=== PATIENT | female | born 1960 | race Caucasian/White ===

== ENCOUNTER → 2016-06-28 | Day surgery (SDC) | payer MEDICAID ==
[~2016-06-28] VITALS: Ht 170.2 cm; Wt 71.7 kg
[~2016-06-28] MED LIST: ABILIFY2 MG PO; ALENDRONATE PO; AMITIZA24 MCG PO; AMOXICILLIN875 MG PO; ANTIBIOTIC PO; ANXIETY PO; ATIVAN1 M1 PO; B12 INJ.,1000 MCG/M IM; BACLOFEN 10MG T10 MG PO; BACLOFEN20 MG PO; BUPROPION SR100 MG PO; BUPROPION100 MG PO; CALCIUM600 M1 PO; CEFTIN 250MG T250 MG PO; CELEBREX 200MG200 MG PO; CEPHALEXIN500 MG PO; CIPRO 250MG TA250 MG PO; CIPRO 500MG TA500 MG PO; CIPROFLOXACIN500 MG PO; CRESTOR5 MG PO; Cephalexin500 MG PO; DIAZEPAM5 MG PO; DICLOFENAC SOD75 MG PO; DIFLUCAN150 MG PO; ESCITALOPRAM20 MG NG; ESTRACE1 MG OR; FAMILY PHARMAC325 MG PO; FEMHRT PO; FLEXERIL10 M1 PO; FLOMAX0.4 MG PO; FOLIC ACID 1MG T1 MG PO; GABAPENTIN 600600 MG PO; GENTAMICIN O5 ML/BOT OP; HYDROCODONE-APA1 TA1 PO; HYDROCODONE1 TABLET PO; IBU-8800 MG PO; INDOCIN25 MG PO; KEFLEX 500MG.500 MG PO; LASIX20 MG PO; LEVAQUIN 750 M750 MG PO; LEVAQUIN500 MG PO; LEVOTHROID0.1 MG PO; LEVOTHYROXIN0.075 MG PO; LEVOTHYROXIN0.125 MG PO; LODRANE 24D 121 C24 PO; LORATADINE 10MG10 M1 PO; LORATADINE10 M1 PO; LORTAB 5/500 501 TAB PO; LORTAB 500 MG-71 TAB PO; MACROBID 100MG100 MG PO; MACROBID100 M3 PO; MAGNESIUM CITRA1 BOT PO; MEDROL 4MG. DOSE4 MG PO; MELOXICAM15 MG PO; METHENAMINE; MIRALAX17 GM/PACK PO; MOBIC15 MG PO; MULTIVITAMIN1 TA1 PO; NAPROSYN 500MG500 MG PO; NAPROSYN500 M1 PO; NITROFURANTOIN100 M6 PO; OMEPRAZOLE40 MG PO; PERCOCET 5/3251 EACH PO; PHENERGAN 25MG.25 M1 PO; POTASSIUM CHLO20 ME2 PO; PREDNISONE 20MG20 MG PO; PREDNISONE20 MG PO; PREMPRO 0.625 M1 TAB PO; PREVACID 30MG C30 M1 PO; PRILOSEC20 M1 PO; SERTRALINE 100100 MG PO; SERTRALINE100 MG PO; SIMVASTATIN20 MG PO; SIMVASTATIN40 MG PO; STERAPRED DS10 MG PO; TRAMADOL 50MG T50 MG PO; TYLENOL W/CODEI1 TA2 PO; VALIUM 5MG TABLE5 MG PO; VALIUM5 MG PO; VOLTAREN GEL1% TP; WELLBUTRIN 100100 M1 OR; WELLBUTRIN 100100 M1 PO; ZOLOFT100 MG PO; [UNRECOGNIZED DRUG - OTHER] PO
[2016-06-28 09:47] VITALS: BP 144/88
[2016-06-28 10:18] VITALS: BP 144/88
[2016-06-28 10:21] VITALS: BP 144/88
--- NOTE | 2016-06-28 10:27 | Procedure Note ---
Procedure detail Date of procedure: 06/28/16 Anesthesiologist: Kyree rowland CRNA Complications: None Pre-procedure diagnosis: Bilateral sacroiliitis. Post-procedure diagnosis: Same. Indications for procedure: This patient's a pleasant 56-year-old white female the comes our pain clinic today complaining of chronic low back pain as well as bilateral hip pain. Patient describes low back pain as constant, dull, aching. She describes the bilateral hip pain as sharp, stabbing. Bilateral hip pain intensifies when standing from the sitting position. Patient has extreme point tenderness over bilateral SI joints. She rates his pain 9/10 Procedure detail: Informed consent was obtained and the risks and benefits of the procedure were explained to the patient. The patient was taken to the procedure room and noninvasive monitors were placed including a noninvasive blood pressure cuff and pulse oximeter. The patient was placed prone on the procedure table. Both hips were cleansed using Betadine as a cleansing solution. C-arm fluoroscopy was used to view the right sacroiliac joint. The skin and subcutaneous tissues were anesthetized using lidocaine 1.5% and a 25-gauge needle. After this, a 22-gauge spinal needle was inserted under fluoroscopic guidance into the inferior aspect of the right sacroiliac joint. Omnipaque dye was injected and good spread was seen throughout the joint. After this, approximately 5 mL of bupivacaine, 0.25% and Depo-Medrol, 40 mg was incrementally injected into the right sacroiliac joint. We then moved to the left sacroiliac joint. The skin and subcutaneous tissues were anesthetized using lidocaine 1.5% and a 25-gauge needle. After this, a 22- gauge spinal needle was inserted under fluoroscopic guidance into the inferior aspect of the left sacroiliac joint. Omnipaque dye was injected and good spread was seen throughout the joint. After this, approximately 5 mL of bupivacaine, 0.25% and Depo-Medrol, 40 mg was incrementally injected into the left sacroiliac joint. The patient tolerated the procedure well with no complications. The patient was observed in the Pain Clinic and then was discharged home neurologically intact. Plan and disposition: Patient was evaluated 10 minutes post procedure. Patient reports 90 percent improvement terms her bilateral hip pain. She will follow-up with us in the pain clinic for further reevaluation. at [phone]
[2016-06-28 10:29] VITALS: BP 144/89
== END ==
LOC: PM 09:15
PROC: 3E0U33Z Introduction of Anti-inflammatory into Joints, Percutaneous Approach (ICD-10-PCS; principal; 2016-06-28)
PROC: 3E0U3BZ Introduction of Anesthetic Agent into Joints, Percutaneous Approach (ICD-10-PCS; 2016-06-28)
DX: M46.1 Sacroiliitis, not elsewhere classified (principal)
CPT/HCPCS: G0260; J1030

== ENCOUNTER 2016-08-04 10:34 | Emergency (ER) | payer MEDICAID ==
[~2016-08-04] VITALS: Ht 170.2 cm; Wt 71.7 kg
[~2016-08-04 10:34] MED LIST changes: -DIFLUCAN150 MG PO; -LEVAQUIN 750 M750 MG PO; -MACROBID100 M3 PO
--- NOTE | 2016-08-04 11:00 | Emergency Room Report ---
History of Present Illness Time Seen by [id number] Presenting Problem in Triage Pt arrived:Wheelchair Presenting Problem:PT REPORTS HAVE BEEN FATIGUED, FEELING WEAK, WANTING TO SLEEP ALL THE TIME LOWER ABD PAIN FOR A COUPLE MONTHS. PT STATES SHE HAS NOT BEEN ABLE TO SEE HER PCP OVER SYMPTOMS R/T LACK OF TRANSPORTATION. 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 N Clinical Suspician of Infection? N Mental Status: 1 - Regular (Normal Baseline) Sepsis Risk:Possible Sepsis Risk Have you (or family members/close friends) recently traveled outside the [place]? N If Yes, where/when: Have you had exposure to infectious disease within the past month? N TB? Other? Specify: Source patient, RN notes reviewed, family, old records Exam Limitations no limitations Comment pt with multiple c/o with feeling of weakness and no vomiting or diarrhea with no chest pain Cardiac Chest Pain Chest pain indicative of cardiac No Timing/Duration this evening Severity moderate ALLERGIES Coded Allergies: Sulfa (Sulfonamide Antibiotics) (Mild, I-RASH 05/29/16) metoclopramide (From REGLAN) (Mild, I-RASH 05/29/16) Home Medications Reported Medications Alendronate Sodium (Fosamax) 10 MG PO DAILY Levothyroxine Sodium (Levothyroxine 0.125MG) 0.125 MG PO DAILY Gabapentin (Gabapentin 600MG) 600 MG PO Q8 PRN PAIN #90 TAB Meloxicam (Meloxicam 15MG) 15 MG PO DAILY #30 TAB Vitamin B12 (Cyanocobalamin Injection) 1,000 MCG IM UNKNOWN #1 Sertraline Hydrochloride (Sertraline 100MG) 100 MG PO BID Loratadine (Loratadine 10MG Tablet) 10 MG PO DAILY Lubiprostone (Amitiza) 24 MCG PO BID Diazepam (Valium) 5 MG PO BID OMEPRAZOLE MAGNESIUM (Prilosec 20MG) 40 MG PO DAILY History Medical History General CAD? No Angina: No [place]: No Hypertension? No Hyperlipidemia? Yes CHF? No DVT? No PE? No COPD? No Asthma? No Anemia? No GERD? No Gastric ulcers? No GI Bleed? No Hernia? No Thyroid Problems? Yes Hypothyroidism? Yes CVA? No Seizures? No Diabetes? No Renal Insuffiency? No End Stage Renal Disease? No UTI? Yes Stones? No BPH? No GB Disease: No Nephritic Syndrome? No Asplenia? No Hepatitis? No Sickle Cell Disease? No Arthritis? Yes Migraines? No Cataracts? No Glaucoma? No MRSA? No HIV? No TB? No Anxiety? Yes Depression? No Cancer? No More? 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 Respiratory denies cough, denies shortness of breath, denies wheezing Cardiovascular denies chest pain, denies syncope Gastrointestinal see HPI, abdominal pain, nausea Genitourinary denies: dysuria, frequency, hesitancy, hematuria. Musculoskeletal denies back pain, denies joint pain, denies joint swelling, denies neck pain Skin denies rash Psychiatric/Neurological denies headache, denies seizure Physical Exam Vital Signs Vital Signs Date Time Temp Pulse Resp B/P Pulse O2 O2 Flow FiO2 Ox Delivery Rate 08/04 1410 98.4 81 20 130/71 97 08/04 1321 98.5 81 20 124/78 97 08/04 1240 98.5 84 20 121/76 96 08/04 1039 98.5 98 20 1444/87 96 - WBC >12,000 or <4,000 or 10% bands? 2 or more SIRS Criteria Met? B/P:130/71 MAP:539 Creatinine >2.0? UA output<0.5ml/kg/hr for 2 hrs? Platelet count >100,000? Lactate >2.0mmol/1? INR >1.2 or PTT > than 60 sec? Evidence of Organ Dysfunction? Provider documented clinical suspician of infection? N Sepsis Criteria Count: 2 Sepsis Risk: Possible Sepsis Risk General Appearance no apparent distress Eye Exam - bilateral eye PERRL, bilateral eye EOMI Ear, Nose, Throat normal ENT inspection Neck supple Respiratory Status No: respiratory distress. Lung Sounds bilateral: lungs clear. 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 No Results/Orders Laboratory Tests 08/04/16 1050: Sodium 139, Potassium 3.8, Chloride 106, Carbon Dioxide 25, BUN 21 H, Creatinine 0.6, Estimated Creat Clear 116, Estimated GFR (MDRD) 103, Glucose 92, Calcium 7.9 L, Total Bilirubin 0.3, AST 14 L, ALT 29, Alkaline Phosphatase 63, Total Protein 7.0, Albumin 3.2 L, Globulin 3.8 H, Albumin/Globulin Ratio 0.8 L, Amylase 31, Lipase 239, WBC 3.9 L, RBC 4.89, Hgb 12.5, Hct 38.3, MCV 78.3 L , RDW 14.7, Plt Count 147, MPV 6.7 L, Gran % 62.2, Gran # 2.4, Lymphocytes % 28.3, Monocytes % 6.1, Eosinophils % 2.6, Basophils % 0.8, Lymphocytes # 1.1, Monocytes # 0.2, Eosinophils # 0.1, Basophils # 0.0, PUBS MCHC 32.8, MCH 25.6 L Orders Procedure Date/time Status LIPASE 08/04 1103 Complete CBC WITH AUTO DIFF 08/04 110 Complete CHEM 12 PROFILE 08/04 1103 Complete AMYLASE 08/04 1103 Complete Departure Departure Time of Disposition 1421 Disposition DC Home or Self Care(routine) Clinical Impression Primary Impression: Weakness Condition STABLE Patient Instructions DI for Fatigue Additional Instructions see pcp for follow up and resume meds Discharge Counseling Counseled pt/family regarding diagnosis, test results, medications/RX, follow up needs ED Critical Care Critical Care No at 1426
--- NOTE | 2016-08-04 11:00 | Emergency Room Report ---
History of Present Illness Time Seen by [id number] Presenting Problem in Triage Pt arrived:Wheelchair Presenting Problem:PT REPORTS HAVE BEEN FATIGUED, FEELING WEAK, WANTING TO SLEEP ALL THE TIME LOWER ABD PAIN FOR A COUPLE MONTHS. PT STATES SHE HAS NOT BEEN ABLE TO SEE HER PCP OVER SYMPTOMS R/T LACK OF TRANSPORTATION. 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 N Clinical Suspician of Infection? N Mental Status: 1 - Regular (Normal Baseline) Sepsis Risk:Possible Sepsis Risk Have you (or family members/close friends) recently traveled outside the [place]? N If Yes, where/when: Have you had exposure to infectious disease within the past month? N TB? Other? Specify: Source patient, RN notes reviewed, family, old records Exam Limitations no limitations Comment pt with multiple c/o with feeling of weakness and no vomiting or diarrhea with no chest pain Cardiac Chest Pain Chest pain indicative of cardiac No Timing/Duration this evening Severity moderate ALLERGIES Coded Allergies: Sulfa (Sulfonamide Antibiotics) (Mild, I-RASH 05/29/16) metoclopramide (From REGLAN) (Mild, I-RASH 05/29/16) Home Medications Reported Medications Alendronate Sodium (Fosamax) 10 MG PO DAILY Levothyroxine Sodium (Levothyroxine 0.125MG) 0.125 MG PO DAILY Gabapentin (Gabapentin 600MG) 600 MG PO Q8 PRN PAIN #90 TAB Meloxicam (Meloxicam 15MG) 15 MG PO DAILY #30 TAB Vitamin B12 (Cyanocobalamin Injection) 1,000 MCG IM UNKNOWN #1 Sertraline Hydrochloride (Sertraline 100MG) 100 MG PO BID Loratadine (Loratadine 10MG Tablet) 10 MG PO DAILY Lubiprostone (Amitiza) 24 MCG PO BID Diazepam (Valium) 5 MG PO BID OMEPRAZOLE MAGNESIUM (Prilosec 20MG) 40 MG PO DAILY History Medical History General CAD? No Angina: No [place]: No Hypertension? No Hyperlipidemia? Yes CHF? No DVT? No PE? No COPD? No Asthma? No Anemia? No GERD? No Gastric ulcers? No GI Bleed? No Hernia? No Thyroid Problems? Yes Hypothyroidism? Yes CVA? No Seizures? No Diabetes? No Renal Insuffiency? No End Stage Renal Disease? No UTI? Yes Stones? No BPH? No GB Disease: No Nephritic Syndrome? No Asplenia? No Hepatitis? No Sickle Cell Disease? No Arthritis? Yes Migraines? No Cataracts? No Glaucoma? No MRSA? No HIV? No TB? No Anxiety? Yes Depression? No Cancer? No More? 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 Respiratory denies cough, denies shortness of breath, denies wheezing Cardiovascular denies chest pain, denies syncope Gastrointestinal see HPI, abdominal pain, nausea Genitourinary denies: dysuria, frequency, hesitancy, hematuria. Musculoskeletal denies back pain, denies joint pain, denies joint swelling, denies neck pain Skin denies rash Psychiatric/Neurological denies headache, denies seizure Physical Exam Vital Signs Vital Signs Date Time Temp Pulse Resp B/P Pulse O2 O2 Flow FiO2 Ox Delivery Rate 08/04 1410 98.4 81 20 130/71 97 08/04 1321 98.5 81 20 124/78 97 08/04 1240 98.5 84 20 121/76 96 08/04 1039 98.5 98 20 1444/87 96 - WBC >12,000 or <4,000 or 10% bands? 2 or more SIRS Criteria Met? B/P:130/71 MAP:539 Creatinine >2.0? UA output<0.5ml/kg/hr for 2 hrs? Platelet count >100,000? Lactate >2.0mmol/1? INR >1.2 or PTT > than 60 sec? Evidence of Organ Dysfunction? Provider documented clinical suspician of infection? N Sepsis Criteria Count: 2 Sepsis Risk: Possible Sepsis Risk General Appearance no apparent distress Eye Exam - bilateral eye PERRL, bilateral eye EOMI Ear, Nose, Throat normal ENT inspection Neck supple Respiratory Status No: respiratory distress. Lung Sounds bilateral: lungs clear. 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 No Results/Orders Laboratory Tests 08/04/16 1050: Sodium 139, Potassium 3.8, Chloride 106, Carbon Dioxide 25, BUN 21 H, Creatinine 0.6, Estimated Creat Clear 116, Estimated GFR (MDRD) 103, Glucose 92, Calcium 7.9 L, Total Bilirubin 0.3, AST 14 L, ALT 29, Alkaline Phosphatase 63, Total Protein 7.0, Albumin 3.2 L, Globulin 3.8 H, Albumin/Globulin Ratio 0.8 L, Amylase 31, Lipase 239, WBC 3.9 L, RBC 4.89, Hgb 12.5, Hct 38.3, MCV 78.3 L , RDW 14.7, Plt Count 147, MPV 6.7 L, Gran % 62.2, Gran # 2.4, Lymphocytes % 28.3, Monocytes % 6.1, Eosinophils % 2.6, Basophils % 0.8, Lymphocytes # 1.1, Monocytes # 0.2, Eosinophils # 0.1, Basophils # 0.0, PUBS MCHC 32.8, MCH 25.6 L Orders Procedure Date/time Status LIPASE 08/04 1103 Complete CBC WITH AUTO DIFF 08/04 110 Complete CHEM 12 PROFILE 08/04 1103 Complete AMYLASE 08/04 1103 Complete Departure Departure Time of Disposition 1421 Disposition DC Home or Self Care(routine) Clinical Impression Primary Impression: Weakness Condition STABLE Patient Instructions DI for Fatigue Additional Instructions see pcp for follow up and resume meds Discharge Counseling Counseled pt/family regarding diagnosis, test results, medications/RX, follow up needs ED Critical Care Critical Care No at 1429
[2016-08-04 11:07] LABS: HEMOGLOBIN 12.5 g/dL (12.2-16.2); LYMPH # 1.1 K/mm3 (0.7-4.5); LYMPH % 28.3 % (10-50.0)
[2016-08-04 14:28] VITALS: BP 135/83
[2016-08-29] MEDS ORDERED: LEVAQUIN 750 M750 MG PO (15:30)
== END 2016-08-04 14:28 | disposition home or self-care (01) ==
LOC: ER 10:34
PROVIDERS: Emergency Medicine
DX: R53.1 Weakness (principal); R10.30 Lower abdominal pain, unspecified; G80.9 Cerebral palsy, unspecified

== ENCOUNTER 2016-09-28 03:17 | Emergency (ER) | payer MEDICAID ==
[~2016-09-28] VITALS: Ht 170.2 cm; Wt 71.2 kg
[~2016-09-28 03:17] MED LIST changes: +LEVAQUIN 750 M750 MG PO
--- NOTE | 2016-09-28 03:38 | Emergency Room Report ---
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 N Clinical Suspician of Infection? N Mental Status: 1 - Regular (Normal Baseline) Sepsis Risk:Possible Sepsis Risk Have you (or family members/close friends) recently traveled outside the [place]? N If Yes, where/when: Have you had exposure to infectious disease within the past month? N TB? Other? Specify: Comment The patient complains of needing a bladder catheterization and also vaginal irritation and pain. She has a history of cerebral palsy. She gets in and out catheterized every 6 hours, performed by her . The last time she was catheter was 5 PM yesterday evening. She says that her was running late for work and did not get to do it before he went to work at 10:30 PM. She tried to catheterize herself tonzita was not able to do so and therefore called 911 to be brought to the emergency room. She also complains of vaginal irritation, yeast infection from recent antibiotics that she took for a urinary tract infection and bronchitis a week ago. She believes this was Levaquin. She took a diagnosis of Diflucan patrica. ALLERGIES Coded Allergies: Sulfa (Sulfonamide Antibiotics) (Mild, I-RASH 08/29/16) metoclopramide (From REGLAN) (Mild, I-RASH 08/29/16) Home Medications Reported Medications Alendronate Sodium (Fosamax) 10 MG PO DAILY Levothyroxine Sodium (Levothyroxine 0.125MG) 0.125 MG PO DAILY Gabapentin (Gabapentin 600MG) 600 MG PO Q8 PRN PAIN #90 TAB Vitamin B12 (Cyanocobalamin Injection) 1,000 MCG IM UNKNOWN #1 Diazepam (Valium) 5 MG PO BID OMEPRAZOLE MAGNESIUM (Prilosec 20MG) 40 MG PO DAILY History Medical History General CAD? No Angina: No [place]: No Hypertension? No Hyperlipidemia? Yes CHF? No DVT? No PE? No COPD? No Asthma? No Anemia? No GERD? No Gastric ulcers? No GI Bleed? No Hernia? No Thyroid Problems? Yes Hypothyroidism? Yes CVA? No Seizures? No Diabetes? No Renal Insuffiency? No End Stage Renal Disease? No UTI? Yes Stones? No BPH? No GB Disease: No Nephritic Syndrome? No Asplenia? No Hepatitis? No Sickle Cell Disease? No Arthritis? Yes Migraines? No Cataracts? No Glaucoma? No MRSA? No HIV? No TB? No Anxiety? Yes Depression? No Cancer? No More? 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 Physical Exam Vital Signs Vital Signs Date Time Temp Pulse Resp B/P Pulse O2 O2 Flow FiO2 Ox Delivery Rate 09/28 0359 98.6 95 18 123/75 98 09/28 0326 98.6 92 20 153/80 98 General Appearance normal appearance, WD/WN Eye Exam - bilateral eye normal exam, bilateral eye PERRL, bilateral eye EOMI Ear, Nose, Throat hearing grossly normal, normal ENT inspection Neck normal inspection, non-tender, supple, full range of motion Respiratory Status Yes: trachea midline, chest symmetrical, non tender chest. No: respiratory distress. Lung Sounds bilateral: normal breath sounds, lungs clear. Cardiovascular normal exam, regular rate/rhythm, no peripheral edema, no gallop, no JVD, no murmur, no rub, normal peripheral pulses Peripheral Pulses Pulses normal Yes Gastrointestinal normal bowel sounds, normal exam, non tender, soft, no organomegaly Back no CVA tenderness Comment Nurse reports that there was some erythema of the vulvar area without any lesions when she inserted the catheter. Neurologic alert, oriented x 3 Mental status normal mood/affect Skin intact, normal color, warm/dry Medical Decision Making LABS/Meds/Orders Pt receiving controlled substance in ED? No Results/Orders Laboratory Tests 09/28/16 0330: Urine Color YELLOW, Urine Appearance CLEAR, Urine pH 6.0, Ur Specific [place] 1.020, Urine Protein NEGATIVE, Urine Ketones NEGATIVE, Urine Blood NEGATIVE, Urine Nitrate POSITIVE H, Urine Bilirubin NEGATIVE, Urine Urobilinogen 1.0, Ur Leukocyte Esterase NEGATIVE, Urine WBC 3-5, Ur Squamous Epith Cells OCC, Urine Bacteria 4+, Urine Glucose NEGATIVE Current Medication Orders Sig/Georgette Start time Last Medication Dose Route Stop Time Status Admin Nitrofurantoin 100 MG ONCE ONE 09/29 399 DC PO 09/28 400 Orders Procedure Date/time Status URINARY CATHETER INSERT 09/28 338 Active URINALYSIS/COMPLETE 09/28 334 Complete CULTURE, URINE 09/28 329 Active Departure Departure Disposition DC Home or Self Care(routine) Clinical Impression Primary Impression: Acute urinary retention Secondary Impressions: UTI (urinary tract infection) Qualifiers: Urinary tract infection type: acute cystitis Hematuria presence: without hematuria Qualified Code: N30.00 - Acute cystitis without hematuria Yeast vaginitis Condition STABLE Patient Instructions DI for Urinary Tract Infection (UTI), DI for Vaginal Yeast Infection Additional Instructions Additional instructions for URINARY TRACT INFECTION: See your physician as soon as possible for further evaluation. Return immediately if you have an uncontrollable fever greater than 102 degrees, severe back or abdominal pain, or repetetive vomiting. Prescriptions Current Visit Scripts NITROFURANTOIN MONOHYD/M-CRYST (Macrobid 100 MG Capsule) 100 MG PO BID #14 CAP Fluconazole (Diflucan 150MG) 150 MG PO DAILY #2 TAB ED Critical Care Critical Care No at 0401
[2016-09-28 03:40] LABS: URINE BILIRUBIN - DIPSTICK NEGATIVE (NEG); URINE BLOOD NEGATIVE (NEG)
[2016-09-28 03:50] LABS: URINE SQUAMOUS CELLS OCC #/hpf (0-5)
[2016-09-28] MEDS ORDERED: MACROBID100 M3 PO (04:00)
[2016-09-28] MEDS ORDERED: DIFLUCAN150 MG PO (04:00)
[2016-09-28 04:08] VITALS: BP 123/75
== END 2016-09-28 04:14 | disposition home or self-care (01) ==
LOC: ER 03:17
PROVIDERS: Emergency Medicine
DX: Z46.6 Encounter for fitting and adjustment of urinary device (principal); N30.00 Acute cystitis without hematuria

== ENCOUNTER → 2016-10-18 | Outpatient (CLI) | payer MEDICAID ==
[~2016-10-18] MED LIST changes: +DIFLUCAN150 MG PO; +LINZESS290 MCG PO; +MACROBID100 M3 PO; +VENLAFAXINE HCL75 M1 PO
[2016-10-18 11:53] LABS: URINE BILIRUBIN - DIPSTICK NEGATIVE (NEG); URINE BLOOD NEGATIVE (NEG)
[2016-10-18 12:02] LABS: URINE SQUAMOUS CELLS OCC #/hpf (0-5)
== END ==
LOC: LAB 09:06
PROVIDERS: Internal Medicine Adolescent Medicine
DX: N39.0 Urinary tract infection, site not specified (principal)

== ENCOUNTER → 2016-10-24 | Outpatient (CLI) | payer MEDICAID ==
--- NOTE | 2016-10-24 15:01 | RADIOLOGY REPORT PS360 ---
HAND-LT-3 VIEWS HISTORY: Hand pain following injury LT WRIST PAIN ORDERING PHYSICIAN: Paresh Romero MD PATIENT AGE: 56 years COMPARISON: None FINDINGS: No fracture or dislocation. No lytic or blastic change. There is normal mineralization. The joint spaces are well-preserved. No significant degenerative/arthritic changes. No erosive changes evident. IMPRESSION: Negative left hand, no acute finding
--- NOTE | 2016-10-24 15:02 | RADIOLOGY REPORT PS360 ---
WRIST-3 VIEWS-LT HISTORY: LT WRIST PAINY ORDERING PHYSICIAN: Paresh Romero MD PATIENT AGE: 56 years COMPARISON: None FINDINGS: No fracture or dislocation. No lytic or blastic change. There is normal mineralization. The joint spaces are well-preserved. No significant degenerative/arthritic changes. No erosive changes evident. IMPRESSION: Negative left wrist, no acute finding
== END ==
LOC: RAD 09:07
DX: M25.532 Pain in left wrist (principal)

== ENCOUNTER 2017-03-08 22:00 | Emergency (ER) | payer MEDICAID ==
[~2017-03-08] VITALS: Ht 170.2 cm; Wt 65.8 kg
[2017-03-08] MEDS ORDERED: ESTRACE0.1 MG/GM VG (22:25)
[2017-03-08] MEDS ORDERED: BETHANECHOL CHL25 MG PO (22:27)
[2017-03-08] MEDS ORDERED: LOTRISONE 0.05%1 CRE TP (22:28)
[2017-03-08] MEDS ORDERED: FLONASE 50 MCG16 GM (22:30)
[2017-03-08] MEDS ORDERED: CETIRIZINE HCL10 MG PO (22:30)
[2017-03-08] MEDS ORDERED: VENTOLIN H0.09 MG/AC IH (22:31)
--- NOTE | 2017-03-08 22:38 | Emergency Room Report ---
History of Present Illness Time Seen by 220 Presenting Problem in Triage Pt arrived:Walked Presenting Problem:feels like she may have a uti, she self caths secondary to CP. fatigue, malaise and bilateral flank pain. 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 N Clinical Suspician of Infection? N Mental Status: 1 - Regular (Normal Baseline) Sepsis Risk:Low Sepsis Risk Have you (or family members/close friends) recently traveled outside the [place]? N If Yes, where/when: Have you had exposure to infectious disease within the past month? N TB? Other? Specify: Source patient, RN notes reviewed, old records Exam Limitations no limitations Comment flank pain with chills and no vomiting which started tonight Cardiac Chest Pain Chest pain indicative of cardiac No Timing/Duration this evening Severity moderate ALLERGIES Coded Allergies: Sulfa (Sulfonamide Antibiotics) (Mild, I-RASH 08/29/16) metoclopramide (From REGLAN) (Mild, I-RASH 08/29/16) Home Medications Reported Medications Alendronate Sodium (Fosamax) 10 MG PO DAILY Levothyroxine Sodium (Levothyroxine 0.125MG) 0.125 MG PO DAILY Gabapentin (Gabapentin 600MG) 600 MG PO Q8 PRN PAIN #90 TAB Vitamin B12 (Cyanocobalamin Injection) 1,000 MCG IM UNKNOWN #1 Estradiol (Estrace) 0.1 MG VG TID Bethanechol Chloride 50 MG PO TID CLOTRIMAZOLE W/ BETAMETHASONE (Lotrisone Cream) 1 CRE TP PRN PRN IRRITATION CETIRIZINE HCL (Cetirizine 10MG) 10 MG PO DAILY Fluticasone Propionate (Flonase 50 Mcg Nasal [place]) 1 SPRAY NA BID ALBUTEROL (Ventolin Hfa) 1 PUFF IH Q6H6 Diazepam (Valium) 5 MG PO BID OMEPRAZOLE MAGNESIUM (Prilosec 20MG) 40 MG PO DAILY Linaclotide (Linzess 290MCG) 290 MCG PO DAILY Venlafaxine Hydrochloride (Venlafaxine XR) 75 MG PO QHS CEFUROXIME AXETIL (CEFTIN 250MG TAB) 500 MG PO BID History Medical History General CAD? No Angina: No CT: No Hypertension? No Hyperlipidemia? Yes CHF? No DVT? No PE? No COPD? No Asthma? No Anemia? No GERD? No Gastric ulcers? No GI Bleed? No Hernia? No Thyroid Problems? Yes Hypothyroidism? Yes CVA? No Seizures? No Diabetes? No Renal Insuffiency? No End Stage Renal Disease? No UTI? Yes Stones? No BPH? No GB Disease: No Nephritic Syndrome? No Asplenia? No Hepatitis? No Sickle Cell Disease? No Arthritis? Yes Migraines? No Cataracts? No Glaucoma? No MRSA? No HIV? No TB? No Anxiety? Yes Depression? No Cancer? No More? Yes Additional hx: CEREBRAL PALSY OSTEOARTHRITIS SELF CATHERIZATION PRN Immunization Hx Ped.Immunizations UTD No DT/Tetanus 12/04/11 Flu 3043-1499 Flu Season Pneumonia NEVER Surgical Hx Previous Surgery?Y Tubal Ligation Appendix INTERSTIM THERAPY THYROIDECTOMY BACK SURGERY 10/30 INTAKE RN Hx LMP menopause Family History Family Hx Diabetes Yes CAD Yes Hypertension No Hyperlipidemia No Cancer No TB No Social History Smoking Hx Smoker: Never Smoker Tobacco: No Alcohol Alcohol: No Drugs none Review of Systems All Other Systems Reviewed and Negative Constitutional see HPI, chills, denies fever Eyes denies drainage ENT denies: ear discharge, epistaxis, throat pain. Respiratory denies cough, denies shortness of breath, denies wheezing Cardiovascular denies chest pain, denies palpitations, denies syncope Gastrointestinal denies abdominal pain, denies diarrhea, denies vomiting Genitourinary denies: dysuria, frequency, hesitancy, hematuria. Musculoskeletal denies back pain, denies joint pain, denies joint swelling, denies neck pain Skin denies rash Psychiatric/Neurological denies headache, denies seizure Physical Exam Vital Signs Vital Signs Date Time Temp Pulse Resp B/P Pulse O2 O2 Flow FiO2 Ox Delivery Rate 03/09 0021 98.0 92 18 132/88 93 03/08 2327 92 18 137/81 93 03/08 2212 98.0 98 14 137/74 98 - WBC >12,000 or <4,000 or 10% bands? 2 or more SIRS Criteria Met? B/P:137/81 MAP:95 Creatinine >2.0? UA output<0.5ml/kg/hr for 2 hrs? Platelet count >100,000? Lactate >2.0mmol/1? INR >1.2 or PTT > than 60 sec? Evidence of Organ Dysfunction? Provider documented clinical suspician of infection? N Sepsis Criteria Count: 1 Sepsis Risk: Low Sepsis Risk General Appearance no apparent distress Eye Exam - bilateral eye PERRL, bilateral eye EOMI Ear, Nose, Throat normal ENT inspection Neck supple Respiratory Status No: respiratory distress. 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 No Results/Orders Laboratory Tests 03/08/17 2300: Urine Color YELLOW, Urine Appearance CLEAR, Urine pH 6.0, Ur Specific [place] >= 1.030, Urine Protein NEGATIVE, Urine Ketones NEGATIVE, Urine Blood NEGATIVE, Urine Nitrate POSITIVE H, Urine Bilirubin NEGATIVE, Urine Urobilinogen 0.2, Ur Leukocyte Esterase TRACE H, Urine WBC 10-20, Ur Squamous Epith Cells 5-10, Urine Bacteria 2+, Urine Glucose NEGATIVE 03/08/17 2250: Sodium 138, Potassium 3.3 L, Chloride 106, Carbon Dioxide 26, BUN 19 H, Creatinine 0.7, Estimated Creat Clear 91, Estimated GFR (MDRD) 86, Glucose 112 H, Calcium 9.0, Total Bilirubin 0.4, AST 10 L, ALT 21, Alkaline Phosphatase 87, Total Protein 7.6, Albumin 3.6, Globulin 4.0 H, Albumin/Globulin Ratio 0.9 L, Amylase 39, Lipase 306, WBC 7.5, RBC 5.40, Hgb 14.1, Hct 43.6, MCV 80.7 L, RDW 13.9, Plt Count 185, MPV 8.0, Gran % 64.5, Gran # 4.8, Lymphocytes % 26.8, Monocytes % 5.8, Eosinophils % 2.3, Basophils % 0.6, Lymphocytes # 2.0, Monocytes # 0.4, Eosinophils # 0.2, Basophils # 0.1, PUBS MCHC 32.4, MCH 26.2 L Current Medication Orders Sig/Georgette Start time Last Medication Dose Route Stop Time Status Admin Sodium Chloride 100 ML .STK-MED ONE 03/09 0000 DC IV Ceftriaxone Sodium 0 .STK-MED ONE 03/08 2359 DC IV Ceftriaxone Sodium 1 GM ONCE ONE 03/08 2345 DC 03/09 Sodium Chloride 50 ML IV 03/09 0014 0003 Sodium Chloride 10 ML PRN PRN 03/08 2245 AC IV 03/09 2238 Orders Procedure Date/time Status DIET-NOTHING BY MOUTH 03/[address] ABD & PELVIS W/O CONTRAST 03/08 2305 Active CULTURE, URINE 03/[address] SCAN REQ 03/08 2239 Active IV SALINE LOCK 03/08 2239 Active URINALYSIS/COMPLETE 03/08 2239 Complete LIPASE 03/08 2239 Complete COMPLETE METABOLIC PANEL 03/08 2239 Complete CBC WITH AUTO DIFF 03/08 2239 Complete AMYLASE 03/08 2239 Complete XRAY/CT/US XRAY/CT/US CT abdomen, pelvis CT interpretation by discussed w/radiologist Time results known: 0033 CT Results abnormal (see chart) Departure Departure Time of Disposition 27 Disposition DC Home or Self Care(routine) Clinical Impression Primary Impression: UTI (urinary tract infection) Qualifiers: Urinary tract infection type: acute cystitis Hematuria presence: without hematuria Qualified Code: N30.00 - Acute cystitis without hematuria Secondary Impressions: Spinal stenosis Qualifiers: Spinal region: thoracic Qualified Code: M48.04 - Spinal stenosis, thoracic region Condition STABLE Referrals Paresh Romero MD (Family) Patient Instructions DI for Urinary Tract Infection (UTI) Additional Instructions fluids and see pcp for follow up and urine culture results Discharge Counseling Counseled pt/family regarding diagnosis, test results, medications/RX, follow up needs Prescriptions Current Visit Scripts Ciprofloxacin HCl (Cipro 500MG TAB) 500 MG PO BID #14 TAB ED Critical Care Critical Care No at 0036
[2017-03-08 23:08] LABS: URINE BILIRUBIN - DIPSTICK NEGATIVE (NEG); URINE BLOOD NEGATIVE (NEG)
[2017-03-08 23:11] LABS: LYMPH % 26.8 % (10-50.0)
[2017-03-08 23:13] LABS: HEMOGLOBIN 14.1 g/dL (12.2-16.2)
[2017-03-09] MEDS ORDERED: CIPRO 500MG TA500 MG PO (00:34)
[2017-03-09 00:35] VITALS: BP 132/88
--- NOTE | 2017-03-09 07:02 | RADIOLOGY REPORT PS360 ---
CT ABD PELVIS W/O CONTRAST CLINICAL INDICATION: ABD PAIN ORDERING PHYSICIAN: Laurie Guerin MD PATIENT AGE: 56 years COMPARISON: 11/04/2016 TECHNIQUE: Axial images obtained with sagittal and coronal reformats. PROCEDURE: Oral Contrast: None IV Contrast: None . FINDINGS: Lung bases are clear. Small hiatal hernia. Gallbladder is contracted. No radiopaque stones. The liver, spleen, adrenal glands, pancreas, and kidneys have an unremarkable unenhanced appearance with no acute finding of the solid organs. Prior appendectomy. No evidence of intestinal obstruction, free air, or diverticulitis. No abnormal fluid collections or focal inflammatory change evident. There is wedge compression changes of T12 or chronic with prior vertebroplasty at that region. There is retropulsion of the posterior inferior aspect of T12 at 7 mm spinal stenosis. Chronic wedge compression changes involve L2 with 7 mm retropulsion of the posterior-superior aspect. IMPRESSION: 1. No change with no acute findings. 2. Chronic wedge compression changes of T12 and L2 with spinal stenosis
== END 2017-03-09 00:35 | disposition home or self-care (01) ==
LOC: ER 22:00
PROVIDERS: Emergency Medicine
DX: N30.00 Acute cystitis without hematuria (principal); M48.04 Spinal stenosis, thoracic region; Z88.2 Allergy status to sulfonamides; Z79.899 Other long term (current) drug therapy; E03.9 Hypothyroidism, unspecified; F41.9 Anxiety disorder, unspecified; G80.9 Cerebral palsy, unspecified

== ENCOUNTER → 2017-03-10 | Outpatient (CLI) | payer MEDICAID ==
[~2017-03-10] MED LIST changes: +BETHANECHOL CHL25 MG PO; +CETIRIZINE HCL10 MG PO; +ESTRACE0.1 MG/GM VG; +FLONASE 50 MCG16 GM; +LOTRISONE 0.05%1 CRE TP; +VENTOLIN H0.09 MG/AC IH
--- NOTE | 2017-03-10 20:11 | RADIOLOGY REPORT PS360 ---
ANKLE-LT-3 VIEWS HISTORY: LT ANKLE PAIN, OLD INJURY Patient Age: 56 years: Female Ordering Physician: Paresh Romero MD TECHNIQUE: 3 views left ankle COMPARISON :3 views left ankle 12/14/2015 . FINDINGS There is old healed basically nondisplaced fractures evident at the distal fibula and tibial shaft , with subtle residual changes from such evident. These areas Are unchanged since 12/14/2015 . There is perhaps slight eversion tilt of the talus on the nonweightbearing AP view, but the ankle mortise appears maintained and intact otherwise with no widening joint space medial or lateral.... The contour of the talar dome appears intact.. If pain persists or progresses consider podiatry consult Small fragment tip of the lateral malleolus may reflect old injury an trauma as may be slight sharpening the medial malleolus . These features suggest minor degenerative changes. Small plantar calcaneal spur 6 mm length noted. . Also note moderate degenerative changes at the the first tarsal/metatarsal joint. Developing hypertrophic and sclerotic changes here. IMPRESSION: Healed fractures of the distal tibia and fibular shaft. There appears to be slightly version tilt of the talus on the AP view but this may be exaggerated by positioning & projection. Degenerative changes ankle/foot, most pronounced at the first tarsal metatarsal joint
== END ==
LOC: RAD 17:14
DX: M25.572 Pain in left ankle and joints of left foot (principal)

== ENCOUNTER 2017-03-24 22:20 | Emergency (ER) | payer MEDICAID ==
[~2017-03-24] VITALS: Ht 170.2 cm; Wt 69.9 kg
--- NOTE | 2017-03-24 22:35 | Emergency Room Report ---
History of Present Illness Time Seen by [id number] Presenting Problem in Triage Pt arrived:Wheelchair Presenting Problem:PT STATE SHE IS HAVING PAIN IN LEFT ANKLE, WHICH RADIATES UP THE ENTIRE LEFT LEG. STATES THE PAIN STARTED AROUND 4:30 THIS EVENING, HAS H/O CEREBRA PALSY. 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 N Clinical Suspician of Infection? N Mental Status: 1 - Regular (Normal Baseline) Sepsis Risk:Low Sepsis Risk Have you (or family members/close friends) recently traveled outside the [place]? N If Yes, where/when: Have you had exposure to infectious disease within the past month? N TB? Other? Specify: Source patient, RN notes reviewed, family, old records Exam Limitations no limitations Comment pt with atraumatic pain to lt hip and thigh with hx of l/s disc disease and is followed by pain center - no cauda equina sx - no fever or b/b sx Cardiac Chest Pain Chest pain indicative of cardiac No Timing/Duration this evening Severity moderate ALLERGIES Coded Allergies: Sulfa (Sulfonamide Antibiotics) (Mild, I-RASH 08/29/16) metoclopramide (From REGLAN) (Mild, I-RASH 08/29/16) Home Medications Reported Medications Alendronate Sodium (Fosamax) 10 MG PO DAILY Levothyroxine Sodium (Levothyroxine 0.125MG) 0.125 MG PO DAILY Gabapentin (Gabapentin 600MG) 600 MG PO Q8 PRN PAIN #90 TAB Vitamin B12 (Cyanocobalamin Injection) 1,000 MCG IM UNKNOWN #1 Estradiol (Estrace) 0.1 MG VG TID Bethanechol Chloride 50 MG PO TID CLOTRIMAZOLE W/ BETAMETHASONE (Lotrisone Cream) 1 CRE TP PRN PRN IRRITATION CETIRIZINE HCL (Cetirizine 10MG) 10 MG PO DAILY Fluticasone Propionate (Flonase 50 Mcg Nasal [place]) 1 SPRAY NA BID ALBUTEROL (Ventolin Hfa) 1 PUFF IH Q6H6 Diazepam (Valium) 5 MG PO BID OMEPRAZOLE MAGNESIUM (Prilosec 20MG) 40 MG PO DAILY Linaclotide (Linzess 290MCG) 290 MCG PO DAILY Venlafaxine Hydrochloride (Venlafaxine XR) 75 MG PO QHS History Medical History General CAD? No Angina: No [place]: No Hypertension? No Hyperlipidemia? Yes CHF? No DVT? No PE? No COPD? No Asthma? No Anemia? No GERD? No Gastric ulcers? No GI Bleed? No Hernia? No Thyroid Problems? Yes Hypothyroidism? Yes CVA? No Seizures? No Diabetes? No Renal Insuffiency? No End Stage Renal Disease? No UTI? Yes Stones? No BPH? No GB Disease: No Nephritic Syndrome? No Asplenia? No Hepatitis? No Sickle Cell Disease? No Arthritis? Yes Migraines? No Cataracts? No Glaucoma? No MRSA? No HIV? No TB? No Anxiety? Yes Depression? No Cancer? No More? Yes Additional hx: CEREBRAL PALSY OSTEOARTHRITIS SELF CATHERIZATION PRN Immunization Hx DT/Tetanus 12/04/11 Flu 7187-1015 Flu Season Pneumonia NEVER Surgical Hx Previous Surgery?Y Tubal Ligation Appendix INTERSTIM THERAPY THYROIDECTOMY BACK SURGERY 10/30 MUSIC ADAPTER Hx LMP N/A Family History Family Hx Diabetes Yes CAD Yes Hypertension No Hyperlipidemia No Cancer No TB No Social History Smoking Hx Smoker: Never Smoker Tobacco: No Type Cigarettes Alcohol Alcohol: No Drugs none Review of Systems All Other Systems Reviewed and Negative Constitutional denies fever Eyes denies drainage ENT denies: ear pain, epistaxis, throat pain. Respiratory denies cough, denies shortness of breath, denies wheezing Cardiovascular denies chest pain, denies syncope Gastrointestinal denies abdominal pain, denies diarrhea, denies vomiting Genitourinary denies: dysuria, frequency, hesitancy, hematuria. Musculoskeletal see HPI, back pain, denies joint pain, denies joint swelling, denies neck pain Skin denies rash Psychiatric/Neurological denies headache, denies seizure Physical Exam Vital Signs Vital Signs Date Time Temp Pulse Resp B/P Pulse O2 O2 Flow FiO2 Ox Delivery Rate 03/24 2225 98.3 113 17 133/71 97 - WBC >12,000 or <4,000 or 10% bands? 2 or more SIRS Criteria Met? B/P:133/71 MAP:91 Creatinine >2.0? UA output<0.5ml/kg/hr for 2 hrs? Platelet count >100,000? Lactate >2.0mmol/1? INR >1.2 or PTT > than 60 sec? Evidence of Organ Dysfunction? Provider documented clinical suspician of infection? N Sepsis Criteria Count: 1 Sepsis Risk: Low Sepsis Risk General Appearance no apparent distress Eye Exam - bilateral eye PERRL, bilateral eye EOMI Ear, Nose, Throat normal ENT inspection Neck non-tender Respiratory Status No: respiratory distress. 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 No Results/Orders Orders Procedure Date/time Status LUMBAR SPINE 5 VIEWS 03/24 2241 Active HIP LT 2-3V W/PELVIS IF PERFOR 03/24 2241 Active XRAY/CT/US XRAY/CT/US XRAY hip, pelvis, L-spine XR interpretation by reviewed by me Xray Results no fracture seen, abnormal Departure Departure Time of Disposition 2325 Disposition DC Home or Self Care(routine) Clinical Impression Primary Impression: Lumbar back pain with radiculopathy affecting left lower extremity Secondary Impressions: Hip pain, left Condition STABLE Referrals Paresh Romero MD (Family) Patient Instructions DI for Lumbar Radiculopathy Additional Instructions use meds and see pcp for follow up and notify pain center Discharge Counseling Counseled pt/family regarding diagnosis, test results, medications/RX, follow up needs Prescriptions Current Visit Scripts Prednisone (Prednisone 20MG) 20 MG PO BID #6 TAB ED Critical Care Critical Care No at 2338
--- NOTE | 2017-03-24 22:35 | Emergency Room Report ---
History of Present Illness Time Seen by [id number] Presenting Problem in Triage Pt arrived:Wheelchair Presenting Problem:PT STATE SHE IS HAVING PAIN IN LEFT ANKLE, WHICH RADIATES UP THE ENTIRE LEFT LEG. STATES THE PAIN STARTED AROUND 4:30 THIS EVENING, HAS H/O CEREBRA PALSY. 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 N Clinical Suspician of Infection? N Mental Status: 1 - Regular (Normal Baseline) Sepsis Risk:Low Sepsis Risk Have you (or family members/close friends) recently traveled outside the [place]? N If Yes, where/when: Have you had exposure to infectious disease within the past month? N TB? Other? Specify: Source patient, RN notes reviewed, family, old records Exam Limitations no limitations Comment pt with atraumatic pain to lt hip and thigh with hx of l/s disc disease and is followed by pain center - no cauda equina sx - no fever or b/b sx Cardiac Chest Pain Chest pain indicative of cardiac No Timing/Duration this evening Severity moderate ALLERGIES Coded Allergies: Sulfa (Sulfonamide Antibiotics) (Mild, I-RASH 08/29/16) metoclopramide (From REGLAN) (Mild, I-RASH 08/29/16) Home Medications Reported Medications Alendronate Sodium (Fosamax) 10 MG PO DAILY Levothyroxine Sodium (Levothyroxine 0.125MG) 0.125 MG PO DAILY Gabapentin (Gabapentin 600MG) 600 MG PO Q8 PRN PAIN #90 TAB Vitamin B12 (Cyanocobalamin Injection) 1,000 MCG IM UNKNOWN #1 Estradiol (Estrace) 0.1 MG VG TID Bethanechol Chloride 50 MG PO TID CLOTRIMAZOLE W/ BETAMETHASONE (Lotrisone Cream) 1 CRE TP PRN PRN IRRITATION CETIRIZINE HCL (Cetirizine 10MG) 10 MG PO DAILY Fluticasone Propionate (Flonase 50 Mcg Nasal [place]) 1 SPRAY NA BID ALBUTEROL (Ventolin Hfa) 1 PUFF IH Q6H6 Diazepam (Valium) 5 MG PO BID OMEPRAZOLE MAGNESIUM (Prilosec 20MG) 40 MG PO DAILY Linaclotide (Linzess 290MCG) 290 MCG PO DAILY Venlafaxine Hydrochloride (Venlafaxine XR) 75 MG PO QHS History Medical History General CAD? No Angina: No [place]: No Hypertension? No Hyperlipidemia? Yes CHF? No DVT? No PE? No COPD? No Asthma? No Anemia? No GERD? No Gastric ulcers? No GI Bleed? No Hernia? No Thyroid Problems? Yes Hypothyroidism? Yes CVA? No Seizures? No Diabetes? No Renal Insuffiency? No End Stage Renal Disease? No UTI? Yes Stones? No BPH? No GB Disease: No Nephritic Syndrome? No Asplenia? No Hepatitis? No Sickle Cell Disease? No Arthritis? Yes Migraines? No Cataracts? No Glaucoma? No MRSA? No HIV? No TB? No Anxiety? Yes Depression? No Cancer? No More? 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 Respiratory denies cough, denies shortness of breath, denies wheezing Cardiovascular denies chest pain, denies syncope Gastrointestinal denies abdominal pain, denies diarrhea, denies vomiting Genitourinary denies: dysuria, frequency, hesitancy, hematuria. Musculoskeletal see HPI, back pain, denies joint pain, denies joint swelling, denies neck pain Skin denies rash Psychiatric/Neurological denies headache, denies seizure Physical Exam Vital Signs Vital Signs Date Time Temp Pulse Resp B/P Pulse O2 O2 Flow FiO2 Ox Delivery Rate 03/24 2225 98.3 113 17 133/71 97 - WBC >12,000 or <4,000 or 10% bands? 2 or more SIRS Criteria Met? B/P:133/71 MAP:91 Creatinine >2.0? UA output<0.5ml/kg/hr for 2 hrs? Platelet count >100,000? Lactate >2.0mmol/1? INR >1.2 or PTT > than 60 sec? Evidence of Organ Dysfunction? Provider documented clinical suspician of infection? N Sepsis Criteria Count: 1 Sepsis Risk: Low Sepsis Risk General Appearance no apparent distress Eye Exam - bilateral eye PERRL, bilateral eye EOMI Ear, Nose, Throat normal ENT inspection Neck non-tender Respiratory Status No: respiratory distress. 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 No Results/Orders Orders Procedure Date/time Status LUMBAR SPINE 5 VIEWS 03/24 2241 Active HIP LT 2-3V W/PELVIS IF PERFOR 03/24 2241 Active XRAY/CT/US XRAY/CT/US XRAY hip, pelvis, L-spine XR interpretation by reviewed by me Xray Results no fracture seen, abnormal Departure Departure Time of Disposition 2325 Disposition DC Home or Self Care(routine) Clinical Impression Primary Impression: Lumbar back pain with radiculopathy affecting left lower extremity Secondary Impressions: Hip pain, left Condition STABLE Referrals Paresh Romero MD (Family) Patient Instructions DI for Lumbar Radiculopathy Additional Instructions use meds and see pcp for follow up and notify pain center Discharge Counseling Counseled pt/family regarding diagnosis, test results, medications/RX, follow up needs Prescriptions Current Visit Scripts Prednisone (Prednisone 20MG) 20 MG PO BID #6 TAB ED Critical Care Critical Care No at 2330
[2017-03-24] MEDS ORDERED: PREDNISONE 20MG20 MG PO (23:37)
[2017-03-24 23:51] VITALS: BP 141/61
--- NOTE | 2017-03-25 09:57 | RADIOLOGY REPORT PS360 ---
EXAM: LUMBAR SPINE 5 VIEWS HISTORY: Low back pain pain ORDERING PHYSICIAN: Laurie Guerin MD PATIENT AGE: 57 years COMPARISON: 09/08/2016 FINDINGS: There is chronic wedge compression changes involving L2. There is been interval vertebroplasty at T12 with wedge compression changes of T12. This is not well delineated on the lateral view due to the technique. Dedicated thoracic spine films may be of further value. There is mild thoracolumbar curvature convex right. Degenerative disc disease is present at L3-L4 L4-5 and L5-S1. IMPRESSION: Chronic wedge compression changes at T12 and L2. The lower thoracic spine is not well delineated on the lateral view. Prior vertebroplasty at T12. No acute finding evident
--- NOTE | 2017-03-25 09:57 | RADIOLOGY REPORT PS360 ---
HIP LT 2-3V W/PELVIS IF PERFOR HISTORY: Left hip pain pain ORDERING PHYSICIAN: Laurie Guerin MD PATIENT AGE: 57 years COMPARISON: None FINDINGS: No fracture or dislocation is evident. No significant degenerative change. No lytic or blastic change. Unremarkable soft tissues IMPRESSION: Negative hip
--- OUTSIDE RECORDS SUMMARY | 2017-03-29 03:54 | External Medical Summary Rpt | CCD ---
Author Author , [facility] Organization [facility] Address Unknown Phone [email or web address] Care Team Providers Care Newspaper Editor Name Role Phone NAYELY BORDEN MD, Unavailable Unavailable NAYELY BORDEN MD [facility] Unavailable Unavailable PHARMACY, [facility] Cindy Rodriguez MD, Unavailable Unavailable Cindy Clark MD, Unavailable Unavailable Daniel Clark MD [facility] # Unavailable Unavailable [id number], [facility] # [id number] Purpose Continuity of Care Document - 08-16-2009 through 2016 Problems Code Diagnosis DOS Provider Status 595.2 595.2 08-08-2013 [place] CHRONIC [facility] CYSTITIS [facility] NEC 782.1 782.1 08-08-2013 [place] NONSPECIF [facility] SKIN ERUPT [facility] NEC 413.9 413.9 05-09-2013 [place] ANGINA [facility] PECTORIS [facility] NEC/NOS 724.2 724.2 05-09-2013 [facility] 922.2 922.2 05-09-2013 [place] CONTUSION [facility] ABDOMINAL [facility] WALL 924.01 924.01 05-09-2013 [place] CONTUSION [facility] E849.0 E849.0 05-09-2013 [place] ACCIDENT IN [facility] E881.0 E881.0 FALL 05-09-2013 [place] FROM [facility] 276.8 276.8 12-21-2012 [place] HYPOPOTASSE [facility] 787.03 787.03 12-21-2012 [place] VOMITING [facility] Allergies, Adverse Reactions, Alerts Type Drug Allergy Adverse Reaction to Substance Substance Reaction Severity SULFA (sulfonamide) I-HIVES Intermediate Metoclopramide Unknown Intermediate Medications Na ND Rx Da Fi Fi Am Da Di Ph RX Ph St me C No te ll ll ou ys ag ar # ys at rm s nt no ma ic us Or Da si cy ia de te s n re d SO 00 02 0 No ALLYSON 00 -2 -M 90 3- Lo ED 04 20 ng RO 72 14 er L 2 12 Ac 5 ti MG ve AL KE 00 11 0 No TO 40 -2 RO 93 4- Lo LA 79 20 ng C 50 13 er 30 1 Ac MG ti /M ve L AL SO 00 07 0 No DI 40 -0 UM 97 8- Lo 98 20 ng CH 30 13 er LO 9 RI Ac DE ti ve 0. 9% SO ALLYSON TI ON ON 00 07 0 No DA 64 -0 NS 16 8- Lo ET 08 20 ng RO 02 13 er N 5 HC Ac L ti 4 ve MG /2 ML AL Sa 63 07 0 No li 80 -0 ne 70 8- Lo 10 20 ng Fl 07 13 er us 5 h Ac 10 ti ML ve Sy ri ng e Po 00 07 0 No ta 24 -0 ss 50 8- Lo iu 05 20 ng m 80 13 er Ch 1 lo Ac ri ti de ve 20 ME Q Ta bl e NI 47 10 10 0 14 7 71 HO Ac TR 78 -2 -2 .0 L- 40 OP ti OF 10 4- 4- 00 MA 20 ER ve UR 30 20 20 RT 7 AN 30 11 11 GW TO 1 PH EN IN AR DO MA LY MO CY N NO # -M CR 10 05 10 91 0 MG SE 31 05 10 5 60 30 WA 71 MC Ac RT 72 -1 -2 .0 L- 18 KE ti RA 20 2- 2- 00 MA 93 AR ve LI 21 20 20 RT 3 E NE 43 11 11 JR 0 PH HC AR WI L MA LL 10 CY IA 0 # M MG F 10 TA 05 BL 91 ET 00 10 10 1 60 30 71 MC Ac 37 -1 -1 .0 L- 39 KE ti 80 8- 8- 00 MA 40 AR ve 75 20 20 RT 0 E 19 11 11 JR 3 PH AR WI MA LL CY IA # M F 10 05 91 FL 00 05 10 5 28 28 WA 71 CL Ac EM 04 -0 -1 .0 L- 17 AR ti FL 61 3- 0- 00 MA 73 KE ve O 10 20 20 RT 5 0. 71 11 11 DE 62 1 PH RE 5- AR K 2. MA J 5 CY MG # TA 10 BL 05 ET 91 LO 00 09 09 3 30 30 WA 88 MC Ac RA 78 -3 -3 .0 L- 18 KE ti TA 15 0- 0- 00 MA 87 AR ve DI 07 20 20 RT 2 E NE 70 11 11 JR 1 PH 10 AR WI MA LL MG CY IA # M TA F BL 10 ET 05 91 CL 00 09 09 1 60 30 AK 44 Ac ON 37 -3 -3 .0 L- 96 KE ti AZ 81 0- 0- 00 MA 60 AR ve EP 91 20 20 RT 2 E AM 00 11 11 JR 1 PH 0. AR WI 5 MA LL MG CY IA # M TA F BL 10 ET 05 91 LE 00 07 09 5 30 30 [place] 71 Ac VO 37 -0 -3 .0 L- 25 KE ti TH 81 2- 0- 00 MA 58 AR ve YR 80 20 20 RT 1 E OX 90 11 11 JR IN 1 PH E AR WI 10 MA LL 0 CY IA MC # M G F TA 10 BL 05 ET 91 AM 00 09 09 1 30 10 AK 71 Ac OX 78 -3 -3 .0 L- 37 KE ti IC 12 0- 0- 00 MA 16 AR ve IL 61 20 20 RT 1 E LI 33 11 11 JR N 1 PH 50 AR WI 0 MA LL MG CY IA # M CA F PS 10 UL 05 E 91 BU 00 05 09 5 12 30 [place] 71 Ac FL 59 -1 -1 0. L- 18 KE ti OP 13 2- 8- 00 MA 93 AR ve IO 54 20 20 0 RT 4 E N 06 11 11 JR HC 0 PH L AR WI SR MA LL CY IA 10 # M 0 F MG 10 05 TA 91 BL ET 00 09 09 0 20 10 [place] 71 FL Ac 37 -0 -0 .0 L- 34 OR ti 87 8- 8- 00 MA 23 EN ve 09 20 20 RT 8 CE 70 11 11 1 PH SA AR RA MA H CY L # 10 05 91 SE 31 05 09 5 60 30 [place] 71 MC Ac RT 72 -1 -0 .0 L- 18 KE ti RA 20 2- 4- 00 MA 93 AR ve LI 21 20 20 RT 3 E NE 43 11 11 JR 0 PH HC AR WI L MA LL 10 CY IA 0 # M MG F 10 TA 05 BL 91 ET 00 08 08 0 21 7 [place] 71 HU Ac 37 -2 -2 .0 L- 31 NT ti 80 3- 3- 00 MA 97 ER ve 77 20 20 RT 2 19 11 11 NA 3 PH NC AR Y MA C CY # 10 05 91 PO 51 08 08 11 52 30 [place] 71 HU Ac LY 99 -2 -2 7. L- 31 NT ti ET 10 3- 3- 00 MA 97 ER ve HY 45 20 20 0 RT 4 LE 75 11 11 NA NE 7 PH NC AR Y GL MA C YC CY OL # 33 10 50 05 91 PO WD LE 00 07 08 5 30 30 WA 71 MC Ac VO 37 -0 -2 .0 L- 25 KE ti TH 81 2- 2- 00 MA 58 AR ve YR 80 20 20 RT 1 E OX 90 11 11 JR IN 1 PH E AR WI 10 MA LL 0 CY IA MC # M G F TA 10 BL 05 ET 91 CI 00 08 08 0 20 10 AK 71 CL Ac FL 37 -1 -1 .0 L- 31 AR ti OF 87 7- 7- 00 MA 17 KE ve LO 09 20 20 RT 1 XA 80 11 11 DE CI 1 PH RE N AR K HC MA J L CY 50 # 0 MG 10 05 TA 91 B GA 00 03 08 3 90 30 [place] 71 HU Ac BA 22 -0 -1 .0 L- 09 NT ti PE 82 4- 6- 00 MA 56 ER ve NT 63 20 20 RT 1 IN 65 11 11 NA 0 PH NC 60 AR Y 0 MA C MG CY # TA BL 10 ET 05 91 00 05 08 5 28 28 [place] 71 CL Ac 04 -0 -1 .0 L- 17 AR ti 60 3- 2- 00 MA 73 KE ve 87 20 20 RT 5 51 11 11 DE 1 PH RE AR K MA J CY # 10 05 91 CE 00 06 08 1 30 30 [place] 71 MC Ac LE 02 -0 -0 .0 L- 21 KE ti BR 51 3- 8- 00 MA 90 AR ve EX 52 20 20 RT 8 E 53 11 11 JR 20 1 PH 0 AR WI MG MA LL CY IA CA # M PS F UL 10 E 05 91 FE 00 05 08 5 60 30 AK 88 MC Ac RR 57 -1 -0 .0 L- 17 KE ti OU 40 2- 8- 00 MA 99 AR ve S 60 20 20 RT 3 E CINTRON 81 11 11 JR LF 0 PH AR WI EC MA LL CY IA 32 # M 4 F MG 10 05 TA 91 BL ET FO 65 03 08 5 30 30 [place] 71 HU Ac LI 16 -2 -0 .0 L- 12 NT ti C 20 3- 8- 00 MA 29 ER ve AC 36 20 20 RT 2 ID 11 11 11 NA 1 1 PH NC AR Y MG MA C CY TA # BL ET 10 05 91 DI 16 07 08 1 30 15 AK 71 MC Ac CL 57 -3 -0 .0 L- 29 KE ti OF 10 1- 2- 00 MA 21 AR ve EN 20 20 20 RT 2 E AC 11 11 11 JR 0 PH SO AR WI D MA LL EC CY IA # M 75 F 10 MG 05 91 TA B BA 00 06 07 5 90 30 [place] 71 BE Ac CL 83 -2 -2 .0 L- 24 SS ti OF 21 5- 8- 00 MA 61 ON ve EN 02 20 20 RT [address] 10 9 PH EP AR HE MG MA N CY A TA # BL ET 10 05 91 CI 00 07 07 0 20 10 AK 71 HE Ac FL 37 -2 -2 .0 L- 28 ND ti OF 87 5- 5- 00 MA 23 RI ve LO 09 20 20 RT 9 X XA 80 11 11 LA CI 1 PH UR N AR EN HC MA N L CY 50 # 0 MG 10 05 TA 91 B SE 31 05 07 5 60 30 [place] 71 MC Ac RT 72 -1 -2 .0 L- 18 KE ti RA 20 2- 4- 00 MA 93 AR ve LI 21 20 20 RT 3 E NE 43 11 11 JR 0 PH HC AR WI L MA LL 10 CY IA 0 # M MG F 10 TA 05 BL 91 ET ARTEMIO 00 07 07 0 3. 1 KE 20 NE Ac TO 02 -0 -0 00 NT 23 LS ti X 31 7- 7- 0 UC 20 ON ve 10 14 20 20 KY 2 0 50 11 11 KE UN 1 CL IT IN N S IC AL PH AR MA CY NI 00 07 07 2 30 30 [place] 71 MC Ac TR 37 -0 -0 .0 L- 25 KE ti OF 81 2- 2- 00 MA 58 AR ve UR 65 20 20 RT 0 E AN 00 11 11 JR TO 1 PH IN AR WI MA LL MC CY IA R # M 50 F 10 MG 05 91 CA P LE 00 07 07 5 30 30 [place] 71 MC Ac VO 37 -0 -0 .0 L- 25 KE ti TH 81 2- 2- 00 MA 58 AR ve YR 80 20 20 RT 1 E OX 90 11 11 JR IN 1 PH E AR WI 10 MA LL 0 CY IA MC # M G F TA 10 BL 05 ET 91 CI 00 06 06 0 20 10 AK 71 BE Ac FL 37 -2 -2 .0 L- 24 SS ti OF 87 5- 5- 00 MA 61 ON ve LO 09 20 20 RT 2 XA [address] CI 1 PH EP N AR HE HC MA N L CY A 50 # 0 MG 10 05 TA 91 B NI 00 06 06 0 20 10 WA 71 BE Ac TR 37 -2 -2 .0 L- 24 SS ti OF 83 5- 5- 00 MA 61 ON ve UR 42 20 20 RT 3 AN [address] TO 1 PH EP IN AR HE MA N MO CY A NO # -M CR 10 05 10 91 0 MG GA 00 06 06 5 90 30 AK 71 BE Ac BA 22 -2 -2 .0 L- 24 SS ti PE 82 5- 5- 00 MA 61 ON ve NT 63 20 20 RT 4 IN [address] 0 PH EP 60 AR HE 0 MA N MG CY A # TA BL 10 ET 05 91 BA 00 06 06 5 90 30 AK 71 BE Ac CL 83 -2 -2 .0 L- 24 SS ti OF 21 5- 5- 00 MA 61 ON ve EN 02 20 20 RT [address] 10 9 PH EP AR HE MG MA N CY A TA # BL ET 10 05 91 FL 00 06 06 0 2. 2 AK 71 FL Ac UC 17 -1 -1 00 L- 23 OR ti ON 25 7- 7- 0 MA 60 EN ve AZ 41 20 20 RT 3 CE OL 21 11 11 E 1 PH SA 15 AR RA 0 MA H MG CY L # TA BL 10 ET 05 91 AZ 00 06 06 0 6. 5 AK 71 FL Ac IT 78 -1 -1 00 L- 23 OR ti HR 11 7- 7- 0 MA 60 EN ve OM 49 20 20 RT 5 CE YC 66 11 11 IN 8 PH SA AR RA 25 MA H 0 CY L MG # TA 10 BL 05 ET 91 BU 00 05 06 5 12 30 AK 71 MC Ac FL 59 -1 -0 0. L- 18 KE ti OP 13 2- 8- 00 MA 93 AR ve IO 54 20 20 0 RT 4 E N 06 11 11 JR HC 0 PH L AR WI SR MA LL CY IA 10 # M 0 F MG 10 05 TA 91 BL ET 00 06 06 0 60 15 AK 44 MC Ac 40 -0 -0 .0 L- 94 KE ti 60 3- 3- 00 MA 12 AR ve 35 20 20 RT 6 E 70 11 11 JR 5 PH AR WI MA LL CY IA # M F 10 05 91 CE 00 06 06 1 30 30 AK 71 MC Ac LE 02 -0 -0 .0 L- 21 KE ti BR 51 3- 3- 00 MA 90 AR ve EX 52 20 20 RT 8 E 53 11 11 JR 20 1 PH 0 AR WI MG MA LL CY IA CA # M PS F UL 10 E 05 91 CE 00 06 06 1 20 10 AK 71 MC Ac FD 78 -0 -0 .0 L- 21 KE ti IN 12 3- 3- 00 MA 90 AR ve IR 17 20 20 RT 9 E 66 11 11 JR 30 0 PH 0 AR WI MG MA LL CY IA CA # M PS F UL 10 E 05 91 SE 31 05 05 5 60 30 AK 71 MC Ac RT 72 -1 -2 .0 L- 18 KE ti RA 20 2- 8- 00 MA 93 AR ve LI 21 20 20 RT 3 E NE 43 11 11 JR 0 PH HC AR WI L MA LL 10 CY IA 0 # M MG F 10 TA 05 BL 91 ET LE 00 03 05 2 30 30 AK 71 HU Ac VO 37 -2 -2 .0 L- 12 NT ti TH 81 3- 5- 00 MA 29 ER ve YR 80 20 20 RT 6 OX 90 11 11 NA IN 1 PH NC E AR Y 10 MA C 0 CY MC # G TA 10 BL 05 ET 91 CE 68 05 05 0 28 7 AK 71 CH Ac PH 18 -2 -2 .0 L- 20 ES ti AL 00 2- 2- 00 MA 29 TN ve EX 12 20 20 RT 3 UT IN 20 11 11 1 PH AR 50 AR CH 0 MA AE MG CY L # CA PS 10 UL 05 E 91 FO 65 03 05 5 30 30 AK 71 HU Ac LI 16 -2 -1 .0 L- 12 NT ti C 20 3- 3- 00 MA 29 ER ve AC 36 20 20 RT 2 ID 11 11 11 NA 1 1 PH NC AR Y MG MA C CY TA # BL ET 10 05 91 CR 00 03 05 3 30 30 AK 71 HU Ac ES 31 -2 -1 .0 L- 12 NT ti TO 00 3- 3- 00 MA 29 ER ve R 75 20 20 RT 3 5 59 11 11 NA MG 0 PH NC AR Y TA MA C BL CY ET # 10 05 91 BU 00 05 05 5 12 30 AK 71 MC Ac FL 59 -1 -1 0. L- 18 KE ti OP 13 2- 2- 00 MA 93 AR ve IO 54 20 20 0 RT 4 E N 06 11 11 JR HC 0 PH L AR WI SR MA LL CY IA 10 # M 0 F MG 10 05 TA 91 BL ET FE 00 05 05 5 60 30 WA 88 MC Ac RR 57 -1 -1 .0 L- 17 KE ti OU 40 2- 2- 00 MA 99 AR ve S 60 20 20 RT 3 E CINTRON 81 11 11 JR LF 0 PH AR WI EC MA LL CY IA 32 # M 4 F MG 10 05 TA 91 BL ET 00 05 05 5 28 28 WA 71 CL Ac 04 -0 -0 .0 L- 17 AR ti 60 3- 3- 00 MA 73 KE ve 87 20 20 RT 5 51 11 11 DE 1 PH RE AR K MA J CY # 10 05 91 SE 54 03 05 1 60 30 WA 71 PE Ac RT 45 -0 -0 .0 L- 10 TI ti RA 80 8- 1- 00 MA 13 T ve LI 94 20 20 RT 1 IN NE 51 11 11 GE 0 PH ARTEMIO HC AR RG L MA 10 CY 0 # MG 10 TA 05 BL 91 ET LE 00 03 04 2 30 30 WA 71 HU Ac VO 37 -2 -2 .0 L- 12 NT ti TH 81 3- 3- 00 MA 29 ER ve YR 80 20 20 RT 6 OX 90 11 11 NA IN 1 PH NC E AR Y 10 MA C 0 CY MC # G TA 10 BL 05 ET 91 FL 00 04 04 0 5. 5 WA 71 HU Ac UC 17 -1 -1 00 L- 15 NT ti ON 25 9- 9- 0 MA 85 ER ve AZ 41 20 20 RT 7 OL 14 11 11 NA E 6 PH NC 10 AR Y 0 MA C MG CY # TA BL 10 ET 05 91 VE 00 04 04 0 90 30 WA 71 HU Ac NL 09 -1 -1 .0 L- 15 NT ti AF 37 5- 5- 00 MA 38 ER ve AX 38 20 20 RT 2 IN 00 11 11 NA E 1 PH NC HC AR Y L MA C 37 CY .5 # MG 10 05 TA 91 BL ET CI 00 04 04 0 20 10 WA 71 HU Ac FL 37 -1 -1 .0 L- 15 NT ti OF 87 5- 5- 00 MA 46 ER ve LO 09 20 20 RT 6 XA 80 11 11 NA CI 1 PH NC N AR Y HC MA C L CY 50 # 0 MG 10 05 TA 91 B ARTEMIO 00 03 03 0 1. 1 KE 14 NE Ac TO 02 -3 -3 00 NT 23 LS ti X 31 1- 1- 0 UC 95 ON ve 10 14 20 20 KY 3 0 50 11 11 KE UN 1 CL IT IN N S IC AL PH AR MA CY CY 00 03 03 1 30 36 WA 71 HU Ac AN 51 -2 -2 .0 5 L- 12 NT ti OC 70 3- 3- 00 MA 32 ER ve OB 13 20 20 RT 1 AL 00 11 11 NA AM 5 PH NC IN AR Y MA C 1, CY 00 # 0 MC 10 G/ 05 ML 91 LE 00 03 03 2 30 30 WA 71 HU Ac VO 37 -2 -2 .0 L- 12 NT ti TH 81 3- 3- 00 MA 29 ER ve YR 80 20 20 RT 6 OX 90 11 11 NA IN 1 PH NC E AR Y 10 MA C 0 CY MC # G TA 10 BL 05 ET 91 CR 00 03 03 3 30 30 WA 71 HU Ac ES 31 -2 -2 .0 L- 12 NT ti TO 00 3- 3- 00 MA 29 ER ve R 75 20 20 RT 3 5 59 11 11 NA MG 0 PH NC AR Y TA MA C BL CY ET # 10 05 91 FO 65 03 03 5 30 30 WA 71 HU Ac LI 16 -2 -2 .0 L- 12 NT ti C 20 3- 3- 00 MA 29 ER ve AC 36 20 20 RT 2 ID 11 11 11 NA 1 1 PH NC AR Y MG MA C CY TA # BL ET 10 05 91 DO 53 03 03 0 20 10 WA 71 HU Ac XY 48 -2 -2 .0 L- 12 NT ti CY 90 3- 3- 00 MA 29 ER ve CL 12 20 20 RT 1 IN 00 11 11 NA E 2 PH NC HY AR Y CL MA C AT CY E # 10 0 10 MG 05 91 TA B BU 00 03 03 0 12 30 WA 71 HU Ac FL 59 -2 -2 0. L- 11 NT ti OP 13 1- 2- 00 MA 95 ER ve IO 54 20 20 0 RT 5 N 06 11 11 NA HC 0 PH NC L AR Y SR MA C CY 10 # 0 MG 10 05 TA 91 BL ET LE 00 01 03 2 30 30 WA 71 NI Ac VO 37 -1 -2 .0 L- 02 CH ti TH 81 4- 2- 00 MA 49 OL ve YR 80 20 20 RT 3 S OX 50 11 11 CHERYL IN 1 PH E E AR A 75 MA CY MC # G TA 10 BL 05 ET 91 VE 00 03 03 2 60 30 WA 71 HU Ac NL 09 -2 -2 .0 L- 11 NT ti AF 37 1- 1- 00 MA 95 ER ve AX 38 20 20 RT 4 IN 00 11 11 NA E 1 PH NC HC AR Y L MA C 37 CY .5 # MG 10 05 TA 91 BL ET SE 54 03 03 1 60 30 WA 71 PE Ac RT 45 -0 -1 .0 L- 10 TI ti RA 80 8- 6- 00 MA 13 T ve LI 94 20 20 RT 1 IN NE 51 11 11 GE 0 PH ARTEMIO HC AR RG L MA 10 CY 0 # MG 10 TA 05 BL 91 ET BU 00 02 03 2 90 30 WA 71 PE Ac FL 59 -0 -0 .0 L- 05 TI ti OP 13 8- 8- 00 MA 96 T ve IO 54 20 20 RT 4 IN N 06 11 11 GE HC 0 PH ARTEMIO L AR RG SR MA CY 10 # 0 MG 10 05 TA 91 BL ET CI 00 03 03 0 20 10 WA 71 HU Ac FL 37 -0 -0 .0 L- 09 NT ti OF 87 4- 4- 00 MA 56 ER ve LO 09 20 20 RT 0 XA 80 11 11 NA CI 1 PH NC N AR Y HC MA C L CY 50 # 0 MG 10 05 TA 91 B GA 00 03 03 3 90 30 WA 71 HU Ac BA 22 -0 -0 .0 L- 09 NT ti PE 82 4- 4- 00 MA 56 ER ve NT 63 20 20 RT 1 IN 65 11 11 NA 0 PH NC 60 AR Y 0 MA C MG CY # TA BL 10 ET 05 91 SE 54 05 02 2 60 30 WA 70 PE Ac RT 45 -1 -1 .0 L- 70 TI ti RA 80 1- 7- 00 MA 42 T ve LI 94 20 20 RT 3 IN NE 51 10 11 GE 0 PH ARTEMIO HC AR RG L MA 10 CY 0 # MG 10 TA 05 BL 91 ET LE 00 01 02 2 30 30 WA 71 NI Ac VO 37 -1 -1 .0 L- 02 CH ti TH 81 4- 7- 00 MA 49 OL ve YR 80 20 20 RT 3 S OX 50 11 11 CHERYL IN 1 PH E E AR A 75 MA CY MC # G TA 10 BL 05 ET 91 BU 00 12 02 1 90 30 WA 70 PE Ac FL 59 -1 -0 .0 L- 98 TI ti OP 13 5- 6- 00 MA 65 T ve IO 54 20 20 RT 3 IN N 06 10 11 GE HC 0 PH ARTEMIO L AR RG SR MA CY 10 # 0 MG 10 05 TA 91 BL ET CI 00 01 01 0 14 7 WA 71 WO Ac FL 37 -2 -2 .0 L- 03 OT ti OF 87 4- 4- 00 MA 75 TO ve LO 09 20 20 RT 9 N XA 80 11 11 CO CI 1 PH LE N AR W HC MA L CY 50 # 0 MG 10 05 TA 91 B SE 54 02 01 1 60 30 WA 70 PE Ac RT 45 -0 -2 .0 L- 57 TI ti RA 80 3- 1- 00 MA 16 T ve LI 94 20 20 RT 6 IN NE 51 10 11 GE 0 PH ARTEMIO HC AR RG L MA 10 CY 0 # MG 10 TA 05 BL 91 ET BA 00 02 01 5 90 30 WA 70 ER Ac CL 83 -2 -2 .0 L- 59 IC ti OF 21 3- 1- 00 MA 79 KS ve EN 02 20 20 RT 3 ON 40 10 11 10 9 PH DE AR ARTEMIO MG MA RA CY H TA # R BL ET 10 05 91 ME 64 01 01 5 60 30 WA 71 ER Ac TH 72 -1 -1 .0 L- 02 IC ti EN 00 4- 4- 00 MA 45 KS ve AM 13 20 20 RT 9 ON IN 91 11 11 E 0 PH DE HI AR ARTEMIO PP MA RA 1 CY H # R GM 10 TA 05 BL 91 ET LE 00 01 01 2 30 30 WA 71 NI Ac VO 37 -1 -1 .0 L- 02 CH ti TH 81 4- 4- 00 MA 49 OL ve YR 80 20 20 RT 3 S OX 50 11 11 CHERYL IN 1 PH E E AR A 75 MA CY MC # G TA 10 BL 05 ET 91 BU 00 09 12 2 90 30 WA 70 PE Ac FL 59 -2 -3 .0 L- 87 TI ti OP 13 1- 1- 00 MA 86 T ve IO 54 20 20 RT 0 IN N 06 10 10 GE HC 0 PH ARTEMIO L AR RG SR MA CY 10 # 0 MG 10 05 TA 91 BL ET ARTEMIO 00 12 12 0 3. 1 KE 14 NE Ac TO 02 -3 -3 00 NT 01 LS ti X 31 0- 0- 0 UC 04 ON ve 10 14 20 20 KY 5 0 50 10 10 KE UN 1 CL IT IN N S IC AL PH AR MA CY CE 00 12 12 0 24 12 WA 71 NI Ac LE 02 -2 -2 .0 L- 00 CH ti BR 51 9- 9- 00 MA 31 OL ve EX 52 20 20 RT 6 S 53 10 10 CHERYL 20 1 PH E 0 AR A MG MA CY CA # PS UL 10 E 05 91 IB 68 12 12 0 15 5 WA 70 NI Ac UP 64 -2 -2 .0 L- 99 CH ti RO 50 2- 2- 00 MA 52 OL ve FE 22 20 20 RT 1 S N 25 10 10 CHERYL 80 4 PH E 0 AR A MG MA CY TA # BL ET 10 05 91 DI 00 12 12 0 90 30 WA 44 NI Ac AZ 37 -2 -2 .0 L- 90 CH ti EP 80 2- 2- 00 MA 62 OL ve AM 34 20 20 RT 9 S 5 50 10 10 CHERYL 5 PH E MG AR A MA TA CY BL # ET 10 05 91 00 12 12 0 14 7 WA 70 WE Ac 37 -2 -2 .0 L- 99 HR ti 87 2- 2- 00 MA 51 MA ve 09 20 20 RT 3 N 70 10 10 II 1 PH I AR WI MA LL CY IA # M E 10 05 91 00 12 12 0 10 2 WA 44 WE Ac 40 -2 -2 .0 L- 90 HR ti 60 2- 2- 00 MA 62 MA ve 35 20 20 RT 7 N 70 10 10 II 5 PH I AR WI MA LL CY IA # M E 10 05 91 SE 31 09 12 2 60 30 WA 70 PE Ac RT 72 -2 -2 .0 L- 87 TI ti RA 20 1- 2- 00 MA 85 T ve LI 21 20 20 RT 9 IN NE 43 10 10 GE 0 PH ARTEMIO HC AR RG L MA 10 CY 0 # MG 10 TA 05 BL 91 ET AC 00 12 12 0 10 3 WA 44 SO Ac ET 60 -1 -1 .0 L- 90 KA ti AM 32 5- 5- 00 MA 51 N ve IN 33 20 20 RT 0 BA OP 83 10 10 BA HE 2 PH TU N- AR ND CO MA E D CY O #3 # TA 10 BL 05 ET 91 IB 68 12 12 0 15 5 WA 70 SO Ac UP 64 -1 -1 .0 L- 98 KA ti RO 50 5- 5- 00 MA 65 N ve FE 22 20 20 RT 1 BA N 25 10 10 BA 80 4 PH TU 0 AR ND MG MA E CY O TA # BL ET 10 05 91 LE 00 06 12 5 30 30 WA 70 NI Ac VO 37 -1 -1 .0 L- 74 CH ti TH 81 5- 1- 00 MA 78 OL ve YR 80 20 20 RT 0 S OX 50 10 10 HCERYL IN 1 PH E E AR A 75 MA CY MC # G TA 10 BL 05 ET 91 00 12 12 0 15 2 WA 44 HE Ac 40 -0 -0 .0 L- 90 ND ti 60 3- 3- 00 MA 24 ER ve 35 20 20 RT 8 SO 80 10 10 N 1 PH RO AR BE MA RT CY W # 10 05 91 00 12 12 0 15 2 WA 44 HE Ac 40 -0 -0 .0 L- 90 ND ti 60 3- 3- 00 MA 24 ER ve 35 20 20 RT 8 SO 80 10 10 N 1 PH RO AR BE MA RT CY W # 10 05 91 AM 00 11 11 0 [address] Ac OX 78 -2 -2 .0 L- 95 EP ti IC 12 2- 2- 00 MA 49 HE ve IL 61 20 20 RT 8 NS LI 33 10 10 N 1 PH KE 50 AR 0 MA N MG CY C # CA PS 10 UL 05 E 91 AC 00 11 11 0 [address] Ac ET 60 -2 -2 .0 L- 89 EP ti AM 32 2- 2- 00 MA 97 HE ve IN 33 20 20 RT 8 NS OP 83 10 10 HE 2 PH KE N- AR CO MA N D CY C #3 # TA 10 BL 05 ET 91 BU 00 09 11 2 90 30 WA 70 PE Ac FL 59 -2 -2 .0 L- 87 TI ti OP 13 1- 1- 00 MA 86 T ve IO 54 20 20 RT 0 IN N 06 10 10 GE HC 0 PH ARTEMIO L AR RG SR MA CY 10 # 0 MG 10 05 TA 91 BL ET SE 31 09 11 2 60 30 WA 70 PE Ac RT 72 -2 -2 .0 L- 87 TI ti RA 20 1- 1- 00 MA 85 T ve LI 21 20 20 RT 9 IN NE 43 10 10 GE 0 PH ARTEMIO HC AR RG L MA 10 CY 0 # MG 10 TA 05 BL 91 ET DI 00 11 11 4 30 30 WA 70 NI Ac CL 78 -2 -1 .0 L- 46 CH ti OF 11 0- 3- 00 MA 76 OL ve EN 78 20 20 RT 9 S AC 90 09 10 CHERYL 1 PH E SO AR A D MA EC CY # 75 10 MG 05 91 TA B LE 00 06 11 5 30 30 WA 70 NI Ac VO 37 -1 -1 .0 L- 74 CH ti TH 81 5- 3- 00 MA 78 OL ve YR 80 20 20 RT 0 S OX 50 10 10 CHERYL IN 1 PH E E AR A 75 MA CY MC # G TA 10 BL 05 ET 91 SE 54 09 10 2 60 30 WA 70 PE Ac RT 45 -2 -2 .0 L- 87 TI ti RA 80 1- 0- 00 MA 85 T ve LI 94 20 20 RT 9 IN NE 51 10 10 GE 0 PH ARTEMIO HC AR RG L MA 10 CY 0 # MG 10 TA 05 BL 91 ET BU 00 09 10 2 90 30 WA 70 PE Ac FL 59 -2 -2 .0 L- 87 TI ti OP 13 1- 0- 00 MA 86 T ve IO 54 20 20 RT 0 IN N 06 10 10 GE HC 0 PH ARTEMIO L AR RG SR MA CY 10 # 0 MG 10 TA 91 BL ET LE 00 06 10 5 30 30 WA 70 NI Ac VO 37 -1 -0 .0 L- 74 CH ti TH 81 5- 5- 00 MA 78 OL ve YR 80 20 20 RT 0 S OX 50 10 10 CHERYL IN 1 PH E E AR A 75 MA CY MC # G TA 10 BL 05 ET 91 SE 54 08 09 1 60 30 WA 70 PE Ac RT 45 -0 -1 .0 L- 80 TI ti RA 80 3- 7- 00 MA 83 T ve LI 94 20 20 RT 2 IN NE 51 10 10 GE 0 PH ARTEMIO HC AR RG L MA 10 CY 0 # MG 10 TA 05 BL 91 ET BU 00 08 09 1 90 30 WA 70 PE Ac FL 59 -0 -1 .0 L- 80 TI ti OP 13 3- 5- 00 MA 83 T ve IO 54 20 20 RT 1 IN N 06 10 10 GE HC 0 PH ARTEMIO L AR RG SR MA CY 10 # 0 MG 10 05 TA 91 BL ET LE 00 06 09 5 30 30 WA 70 NI Ac VO 37 -1 -0 .0 L- 74 CH ti TH 81 5- 3- 00 MA 78 OL ve YR 80 20 20 RT 0 S OX 50 10 10 CHERYL IN 1 PH E E AR A 75 MA CY MC # G TA 10 BL 05 ET 91 CI 00 10 08 0 20 10 WA 70 NI Ac FL 37 -1 -2 .0 L- 41 CH ti OF 87 6- 7- 00 MA 55 OL ve LO 09 20 20 RT 8 S XA 80 09 10 CHERYL CI 1 PH E N AR A HC MA L CY 50 # 0 MG 10 05 TA 91 B CI 00 08 08 0 20 10 WA 70 SO Ac FL 37 -1 -1 .0 L- 82 KA ti OF 87 8- 8- 00 MA 63 N ve LO 09 20 20 RT 7 BA XA 80 10 10 BA CI 1 PH TU N AR ND HC MA E L CY O 50 # 0 MG 10 05 TA 91 B SE 54 08 08 1 60 30 WA 70 PE Ac RT 45 -0 -1 .0 L- 80 TI ti RA 80 3- 5- 00 MA 83 T ve LI 94 20 20 RT 2 IN NE 51 10 10 GE 0 PH ARTEMIO HC AR RG L MA 10 CY 0 # MG 10 TA 05 BL 91 ET BU 00 08 08 1 90 30 WA 70 PE Ac FL 59 -0 -0 .0 L- 80 TI ti OP 13 3- 3- 00 MA 83 T ve IO 54 20 20 RT 1 IN N 06 10 10 GE HC 0 PH ARTEMIO L AR RG SR MA CY 10 # 0 MG 10 05 TA 91 BL ET LE 00 06 07 5 30 30 WA 70 NI Ac VO 37 -1 -2 .0 L- 74 CH ti TH 81 5- 3- 00 MA 78 OL ve YR 80 20 20 RT 0 S OX 50 10 10 CHERYL IN 1 PH E E AR A 75 MA CY MC # G TA 10 BL 05 ET 91 AB 59 05 07 2 30 30 WA 70 PE Ac IL 14 -1 -2 .0 L- 70 TI ti IF 80 1- 1- 00 MA 42 T ve Y 00 20 20 RT 2 IN 5 71 10 10 GE MG 3 PH ARTEMIO AR RG TA MA BL CY ET # 10 05 91 SE 31 05 07 2 60 30 WA 70 PE Ac RT 72 -1 -1 .0 L- 70 TI ti RA 20 1- 6- 00 MA 42 T ve LI 21 20 20 RT 3 IN NE 43 10 10 GE 0 PH ARTEMIO HC AR RG L MA 10 CY 0 # MG 10 TA 05 BL 91 ET CI 00 06 06 0 20 10 WA 70 NI Ac FL 37 -2 -2 .0 L- 76 CH ti OF 87 9- 9- 00 MA 60 OL ve LO 09 20 20 RT 7 S XA 80 10 10 CHERYL CI 1 PH E N AR A HC MA L CY 50 # 0 MG 10 05 TA 91 B NI 00 02 06 5 30 30 WA 70 ER Ac TR 37 -2 -2 .0 L- 59 IC ti OF 83 3- 9- 00 MA 78 KS ve UR 42 20 20 RT 6 ON AN 20 10 10 TO 1 PH DE IN AR ARTEMIO MA RA MO CY H NO # R -M CR 10 05 10 91 0 MG LE 00 06 06 5 30 30 WA 70 NI Ac VO 37 -1 -1 .0 L- 74 CH ti TH 81 5- 5- 00 MA 78 OL ve YR 80 20 20 RT 0 S OX 50 10 10 CHERYL IN 1 PH E E AR A 75 MA CY MC # G TA 10 BL 05 ET 91 AB 59 05 06 2 30 30 WA 70 PE Ac IL 14 -1 -0 .0 L- 70 TI ti IF 80 1- 9- 00 MA 42 T ve Y 00 20 20 RT 2 IN 5 71 10 10 GE MG 3 PH ARTEMIO AR RG TA MA BL CY ET # 10 05 91 ME 64 06 06 3 60 30 WA 70 TU Ac TH 72 -0 -0 .0 L- 23 TT ti EN 00 9- 8- 00 MA 99 LE ve AM 13 20 20 RT 7 IN 91 09 10 JR E 0 PH HI AR CHERYL PP MA HN 1 CY P # GM 10 TA 05 BL 91 ET 00 06 06 0 36 6 WA 44 NI Ac 09 -0 -0 .0 L- 86 CH ti 30 5- 5- 00 MA 06 OL ve 89 20 20 RT 9 S 00 10 10 CHERYL 5 PH E AR A MA CY # 10 05 91 SE 31 05 06 2 60 30 WA 70 PE Ac RT 72 -1 -0 .0 L- 70 TI ti RA 20 1- 5- 00 MA 42 T ve LI 21 20 20 RT 3 IN NE 43 10 10 GE 0 PH ARTEMIO HC AR RG L MA 10 CY 0 # MG 10 TA 05 BL 91 ET ARTEMIO 00 06 06 0 3. 1 KE 13 NE Ac TO 02 -0 -0 00 NT 50 LS ti X 31 3- 3- 0 UC 71 ON ve 10 14 20 20 KY 8 0 50 10 10 KE UN 1 CL IT IN N S IC AL PH AR MA CY CL 63 05 05 0 28 7 WA 70 RO Ac IN 30 -1 -1 .0 L- 70 GE ti DA 40 0- 3- 00 MA 16 RS ve MY 69 20 20 RT 2 CI 31 10 10 WI N 6 PH LL HC AR IA L MA M 30 CY B 0 # MG 10 CA 05 PS 91 UL E LE 00 12 05 4 30 30 WA 70 NI Ac VO 37 -2 -1 .0 L- 51 CH ti TH 81 4- 0- 00 MA 66 OL ve YR 80 20 20 RT 8 S OX 50 09 10 CHERYL IN 1 PH E E AR A 75 MA CY MC # G TA 10 BL 05 ET 91 CL 63 05 05 0 28 7 WA 70 RO Ac IN 30 -0 -0 .0 L- 69 GE ti DA 40 7- 7- 00 MA 86 RS ve MY 69 20 20 RT 0 CI 31 10 10 WI N 6 PH LL HC AR IA L MA M 30 CY B 0 # MG 10 CA 05 PS 91 UL E CE 68 05 05 0 15 5 WA 70 DU Ac PH 18 -0 -0 .0 L- 69 SS ti AL 00 5- 6- 00 MA 52 EA ve EX 12 20 20 RT 7 UL IN 20 10 10 T 1 PH BE 50 AR AU 0 MA N MG CY # CA PS 10 UL 05 E 91 FL 00 05 05 0 6. 5 WA 70 ER Ac UC 17 -0 -0 00 L- 69 IC ti ON 25 6- 6- 0 MA 62 KS ve AZ 41 20 20 RT 5 ON OL 14 10 10 E 6 PH DE 10 AR ARTEMIO 0 MA RA MG CY H # R TA BL 10 ET 05 91 00 05 05 0 20 2 WA 44 DU Ac 40 -0 -0 .0 L- 85 SS ti 60 5- 5- 00 MA 39 EA ve 35 20 20 RT 1 UL 70 10 10 T 5 PH BE AR AU MA N CY # 10 05 91 SE 54 03 05 1 60 30 WA 70 PE Ac RT 45 -1 -0 .0 L- 62 TI ti RA 80 6- 5- 00 MA 78 T ve LI 94 20 20 RT 9 IN NE 51 10 10 GE 0 PH ARTEMIO HC AR RG L MA 10 CY 0 # MG 10 TA 05 BL 91 ET CE 68 04 04 0 30 10 WA 70 DU Ac PH 18 -2 -2 .0 L- 68 SS ti AL 00 8- 8- 00 MA 60 EA ve EX 12 20 20 RT 1 UL IN 20 10 10 T 1 PH BE 50 AR AU 0 MA N MG CY # CA PS 10 UL 05 E 91 00 04 04 0 20 2 WA 44 DU Ac 40 -2 -2 .0 L- 85 SS ti 60 8- 8- 00 MA 21 EA ve 35 20 20 RT 7 UL 70 10 10 T 5 PH BE AR AU MA N CY # 10 05 91 NI 00 02 04 5 30 30 WA 70 ER Ac TR 37 -2 -2 .0 L- 59 IC ti OF 83 3- 4- 00 MA 78 KS ve UR 42 20 20 RT 6 ON AN 20 10 10 TO 1 PH DE IN AR ARTEMIO MA RA MO CY H NO # R -M CR 10 05 10 91 0 MG NE 00 04 04 1 30 30 WA 70 NI Ac XI 18 -2 -2 .0 L- 68 CH ti UM 65 4- 4- 00 MA 02 OL ve 04 [address] 03 10 10 CHERYL 1 PH E 40 AR A MA MG CY # CA PS 10 UL 05 E 91 CI 00 04 04 0 20 10 WA 70 RO Ac FL 37 -0 -0 .0 L- 65 GE ti OF 87 8- 8- 00 MA 88 RS ve LO 09 20 20 RT 5 XA 80 10 10 WI CI 1 PH LL N AR IA HC MA M L CY B 50 # 0 MG 10 05 TA 91 B AB 59 03 04 1 30 30 WA 70 PE Ac IL 14 -1 -0 .0 L- 62 TI ti IF 80 6- 5- 00 MA 79 T ve Y 00 20 20 RT 1 IN 5 71 10 10 GE MG 3 PH ARTEMIO AR RG TA MA BL CY ET # 10 05 91 LE 00 12 04 4 30 30 WA 70 NI Ac VO 37 -2 -0 .0 L- 51 CH ti TH 81 4- 3- 00 MA 66 OL ve YR 80 20 20 RT 8 S OX 50 09 10 CHERYL IN 1 PH E E AR A 75 MA CY MC # G TA 10 BL 05 ET 91 NI 00 02 03 5 30 30 WA 70 ER Ac TR 37 -2 -2 .0 L- 59 IC ti OF 83 3- 7- 00 MA 78 KS ve UR 42 20 20 RT 6 ON AN 20 10 10 TO 1 PH DE IN AR ARTEMIO MA RA MO CY H NO # R -M CR 10 05 10 91 0 MG SE 54 03 03 1 60 30 WA 70 PE Ac RT 45 -1 -2 .0 L- 62 TI ti RA 80 6- 7- 00 MA 78 T ve LI 94 20 20 RT 9 IN NE 51 10 10 GE 0 PH ARTEMIO HC AR RG L MA 10 CY 0 # MG 10 TA 05 BL 91 ET ME 64 11 03 3 60 30 WA 70 TU Ac TH 72 -1 -2 .0 L- 45 TT ti EN 00 0- 2- 00 MA 08 LE ve AM 13 20 20 RT 2 IN 91 09 10 JR E 0 PH HI AR CHERYL PP MA HN 1 CY P # GM 10 TA 05 BL 91 ET SE 54 04 03 11 30 30 WA 70 CL Ac RT 45 -2 -1 .0 L- 17 AR ti RA 80 1- 0- 00 MA 45 KE ve LI 94 20 20 RT 4 NE 51 09 10 DE 0 PH RE HC AR K L MA J 10 CY 0 # MG 10 TA 05 BL 91 ET LE 00 12 03 4 30 30 WA 70 NI Ac VO 37 -2 -0 .0 L- 51 CH ti TH 81 4- 5- 00 MA 66 OL ve YR 80 20 20 RT 8 S OX 50 09 10 CHERYL IN 1 PH E E AR A 75 MA CY MC # G TA 10 BL 05 ET 91 ARTEMIO 00 03 03 0 3. 1 KE 13 NE Ac TO 02 -0 -0 00 NT 31 LS ti X 31 3- 3- 0 UC 75 ON ve 10 14 20 20 KY 3 0 50 10 10 KE UN 1 CL IT IN N S IC AL PH AR MA CY Vital Signs 08-08-2013 14:50 Name Value Interpretat Reference Comment ion Range BP 70 mm[Hg] Diastolic BP Systolic 140 mm[Hg] Heart 93 /min Rate/Pulse O2% 98 % Respiratory 20 /min Rate 08-08-2013 14:14 Name Value Interpretat Reference Comment ion Range BP 82 mm[Hg] Diastolic BP Systolic 129 mm[Hg] Heart 98 /min Rate/Pulse O2% 98 % Respiratory 18 /min Rate 05-09-2013 18:41 Name Value Interpretat Reference Comment ion Range BP 89 mm[Hg] Diastolic BP Systolic 124 mm[Hg] Heart 74 /min Rate/Pulse O2% 96 % Respiratory 20 /min Rate 05-09-2013 16:40 Name Value Interpretat Reference Comment ion Range BP 104 mm[Hg] Diastolic BP Systolic 155 mm[Hg] Heart 87 /min Rate/Pulse O2% 94 % Respiratory 24 /min Rate 12-21-2012 19:04 Name Value Interpretat Reference Comment ion Range Body 100.6 Temperature [degF] BP 72 mm[Hg] Diastolic BP Systolic 123 mm[Hg] Heart 93 /min Rate/Pulse O2% 97 % Respiratory 20 /min Rate 12-21-2012 18:18 Name Value Interpretat Reference Comment ion Range BP 83 mm[Hg] Diastolic BP Systolic 134 mm[Hg] Heart 106 /min Rate/Pulse O2% 95 % Respiratory 20 /min Rate Results Labs Lab Lab Date Result Refere Interp Status Commen Order Detail nces retati t Range on Urinalysis dipstick W Reflex Microscopic panel in Urine (11-04-2016 10:40) Bacteri 11-04- 4+ O complet a 017 ed [Presen 10:40 ce] in Urine sedimen t by Light microsc opy Epithel 11-04- 3-5 0#/hp complet ial 017 f - ed cells.s 10:40 5#/hp quamous f [Presen ce] in Urine sedimen t by Microsc opy high power field Leukocy 11-04- 3-5 O complet shyann 017 wbc/hpf ed [#/volu 10:40 me] in Urine Urinalysis dipstick W Reflex Microscopic panel in Urine (11-04-2016 10:40) Appeara SL CLEAR complet nce of 017 CLOUDY ed Urine 10:40 Bilirub NEGATIV NEG complet in 017 E ed [Presen 10:40 ce] in Urine by Test strip Erythro 11-04-2 NEGATIV NEG complet cytes 017 E ed [Presen 10:40 ce] in Urine Color 11-04-2 YELLOW YELLOW complet of 017 ed Urine 10:40 Ketones 11-04- NEGATIV NEG complet 017 E ed [Presen 10:40 ce] in Urine by Automat ed test strip Mucus 11-04-2 NEGATIV NEG complet [Presen 017 E ed ce] in 10:40 Urine sedimen t by Light microsc opy Nitrite --2 POSITIV NEG Abnorma complet 017 E l ed [Presen 10:40 ce] in Urine by Test strip Urobili 11-04-2 0.2 NEG complet nogen 017 ed [Presen 10:40 ce] in Urine by Test strip Hemoglobin.gastrointestinal [Presence] in Stool (11-04-2016 10:40) Hemoglo 11-04-2 NEGATIV NEG complet bin.gas 017 E ed trointe 10:40 stinal [Presen ce] in Stool --1st specime n CBC with AUTO DIFF (08-08-2013 14:00) WBC # 02-23-2 5.2 4.8-10. complet Bld 014 K/MM3 8 ed Auto 14:00 RBC # 02-23-2 4.94 4.2-5.4 complet Bld 014 M/mm3 ed Auto 14:00 Hgb 02-23-2 12.6 12.2-16 complet Bld-mCn 014 g/dL .2 ed c 14:00 Hct Fr 23-2 39.3 % 37.0-47 complet Bld 014 .0 ed 14:00 MCV RBC 23-2 79.4 fl 82.2-97 complet 014 .8 ed 14:00 MCH RBC 23-2 25.5 pg 27-31.2 complet Qn 014 ed Auto 14:00 MEAN 02-23-2 32.1 31.8-35 complet CORPUSC 014 g/dl .4 ed ULAR 14:00 HGB CONC RDW RBC 08-08-2 15.7 % 11.5-17 complet Auto 014 .5 ed 14:00 Platele -23-2 171 142-424 complet t Bld 014 K/mm3 ed Ql 14:00 Manual MEAN 08-08-2 7.7 fl 7.4-10. complet PLATELE 014 4 ed T 14:00 VOLUME Granulo -23-2 66.5 % 37.0-80 complet cytes 014 .0 ed Fr Bld 14:00 Auto LYMPH % 02-23-2 24.6 % 10-50.0 complet 014 ed 14:00 Monocyt 02-23-2 5.0 % 1.7-9.3 complet es Fr 014 ed Bld 14:00 Auto Eosinop 02-23-2 3.2 % 0.1-12. complet hil Fr 014 0 ed Bld 14:00 Auto Basophi 02-23-2 0.7 % 0.1-2.0 complet ls Fr 014 ed Bld 14:00 Auto Granulo 02-23-2 3.5 1.8-7.8 complet cytes # 014 K/mm3 ed Bld 14:00 Auto Lymphoc 02-23-2 1.3 0.7-4.5 complet ytes Fr 014 K/mm3 ed Bld 14:00 Auto Monocyt 02-23-2 0.3 0.1-1.0 complet es # 014 K/mm3 ed Bld 14:00 Auto Eosinop 02-23-2 0.2 0.0-0.4 complet hil # 014 K/mm3 ed Bld 14:00 Auto Basophi 02-23-2 0.0 0-0.2 complet ls # 014 K/MM3 ed Bld 14:00 Auto URINALYSIS/COMPLETE (05-09-2013 16:37) URINE 11-24-2 YELLOW YELLOW complet COLOR 013 ed 16:37 URINE 11-24-2 CLEAR CLEAR complet APPEARA 013 ed NCE 16:37 URINE 11-24-2 NEGATIV NEG complet GLUCOSE 013 E ed - 16:37 DIPSTIC K URINE 11-24-2 NEGATIV NEG complet BILIRUB 013 E ed IN - 16:37 DIPSTIC K URINE 11-24-2 NEGATIV NEG complet KETONE 013 E mg/dL ed 16:37 URINE 11-24-2 Greater 1.005-1 complet SPECIFI 013 than .030 ed C 16:37 or GRAVITY equal to 1.030 URINE 11-24-2 TRACE-I NEG complet BLOOD 013 NTACT ed 16:37 URINE 11-24-2 6.0 UNK 5.0-8.5 complet PH 013 ed 16:37 URINE 11-24-2 NEGATIV NEG complet PROTEIN 013 E mg/dL ed - 16:37 DIPSTIC K URINE 11-24-2 0.2 NEG complet UROBILI 013 E.U./dL ed NOGEN - 16:37 DIPSTIC K URINE 11-24-2 POSITIV NEG complet NITRATE 013 E ed - 16:37 DIPSTIC K URINE 11-24-2 NEGATIV NEG complet LEUK 013 E ed ESTERAS 16:37 E URINE 11-24-2 OCC 0 complet RBC 013 rbc/hpf ed 16:37 URINE 11-24-2 OCC O complet WBC 013 wbc/hpf ed 16:37 URINE 11-24-2 OCC 0-5 complet SQUAMOU 013 #/hpf ed S CELLS 16:37 URINE -24-2 3+ O complet BACTERI 013 ed A 16:37 BASIC METABOLIC PANEL (12-21-2012 18:20) Glucose 113 74-106 complet 013 mg/dL ed Bld-mCn 18:20 c BUN 08-2 17 7-18 complet Bld-mCn 013 mg/dL ed c 18:20 Creat 12-21-2 0.7 0.6-1.0 complet SerPl-m 013 mg/dL ed Cnc 18:20 ESTIMAT 12-21-2 100 50-200 complet ED 013 ML/MIN ed CREATIN 18:20 INE CLEARAN CE GFR 87 59- complet (ESTIMA 013 ML/MIN ed JUSTINO) 18:20 Sodium 08-2 137 136-145 complet SerPl-s 013 mmoL/L ed Cnc 18:20 Potassi 12-21-2 3.2 3.5-5.1 complet um 013 mmoL/L ed SerPl-s 18:20 Cnc Chlorid 12-21- 103 98-107 complet e 013 mmoL/L ed SerPl-s 18:20 Cnc CO2 12-21-2 26 21.0-32 complet SerPl-s 013 mmoL/L .0 ed Cnc 18:20 Calcium 08-2 8.3 8.5-10. complet 013 mg/dL 1 ed SerPl-m 18:20 Cnc CBC with AUTO DIFF (12-21-2012 18:20) WBC # 07-08-2 5.8 4.8-10. complet Bld 013 K/MM3 8 ed Auto 18:20 RBC # 07-08-2 4.44 4.2-5.4 complet Bld 013 M/mm3 ed Auto 18:20 Hgb 08-2 11.5 12.2-16 complet Bld-mCn 013 g/dL .2 ed c 18:20 Hct Fr 08-2 34.6 % 37.0-47 complet Bld 013 .0 ed 18:20 MCV RBC 08-2 78.0 fl 82.2-97 complet 013 .8 ed 18:20 MCH RBC 08-2 25.9 pg 27-31.2 complet Qn 013 ed Auto 18:20 MEAN 08-2 33.2 31.8-35 complet CORPUSC 013 g/dl .4 ed ULAR 18:20 HGB CONC RDW RBC 08-2 13.8 % 11.5-17 complet Auto 013 .5 ed 18:20 Platele 07-08-2 184 142-424 complet t Bld 013 K/mm3 ed Ql 18:20 Manual MEAN 2 7.8 fl 7.4-10. complet PLATELE 013 4 ed T 18:20 VOLUME Granulo 12-21-2 75.9 % 37.0-80 complet cytes 013 .0 ed Fr Bld 18:20 Auto LYMPH % 08-2 17.9 % 10-50.0 complet 013 ed 18:20 Monocyt 08-2 4.0 % 1.7-9.3 complet es Fr 013 ed Bld 18:20 Auto Eosinop -08-2 1.6 % 0.1-12. complet hil Fr 013 0 ed Bld 18:20 Auto Basophi 08-2 0.4 % 0.1-2.0 complet ls Fr 013 ed Bld 18:20 Auto Granulo 08-2 4.4 1.8-7.8 complet cytes # 013 K/mm3 ed Bld 18:20 Auto Lymphoc 08-2 1.0 0.7-4.5 complet ytes Fr 013 K/mm3 ed Bld 18:20 Auto Monocyt -08-2 0.2 0.1-1.0 complet es # 013 K/mm3 ed Bld 18:20 Auto Eosinop -08-2 0.1 0.0-0.4 complet hil # 013 K/mm3 ed Bld 18:20 Auto Basophi -08-2 0.0 0-0.2 complet ls # 013 K/MM3 ed Bld 18:20 Auto Encounters Encounter Start End Date Code Location Performer Type Date Emergency YAIMA BORDEN MD (ER) 4 14:32 4 14:51 [facility] Emergency YAIMA Rodriguez MD (ER) 3 16:59 3 18:47 [facility] Emergency YAIMA Clark MD (ER) 3 17:45 3 19:12 [facility]
--- OUTSIDE RECORDS SUMMARY | 2017-03-29 03:54 | External Medical Summary Rpt | CCD ---
Author Author , [facility] Organization [facility] Address Unknown Phone [email or web address] Care Team Providers Care Engineer Sergeant Name Role Phone NAYELY BORDEN MD, Unavailable Unavailable NAYELY BORDEN MD [facility] Unavailable Unavailable PHARMACY, [facility] Cindy Rodriguez MD, Unavailable Unavailable Cindy Clark MD, Unavailable Unavailable Daniel Clark MD [facility] # Unavailable Unavailable [id number], [facility] # [id number] Purpose Continuity of Care Document - 08-16-2009 through 2016 Problems Code Diagnosis DOS Provider Status 595.2 595.2 08-08-2013 [place] CHRONIC [facility] CYSTITIS [facility] NEC 782.1 782.1 08-08-2013 [place] NONSPECIF [facility] SKIN ERUPT [facility] NEC 413.9 413.9 05-09-2013 [place] ANGINA [facility] PECTORIS [facility] NEC/NOS 724.2 724.2 05-09-2013 [facility] 922.2 922.2 05-09-2013 [place] CONTUSION [facility] ABDOMINAL [facility] WALL 924.01 924.01 05-09-2013 [place] CONTUSION [facility] E849.0 E849.0 05-09-2013 [place] ACCIDENT IN [facility] E881.0 E881.0 FALL 05-09-2013 [place] FROM [facility] 276.8 276.8 12-21-2012 [place] HYPOPOTASSE [facility] 787.03 787.03 12-21-2012 [place] VOMITING [facility] Allergies, Adverse Reactions, Alerts Type Drug [...] RA 20 2- 2- 00 MA 93 NC ve LI 21 20 20 RT 3 E NE 43 11 11 JR 0 PH HC AR WI L MA LL 10 CY IA 0 # M MG F 10 TA 05 BL 91 ET 00 10 10 1 60 30 71 MC Ac 37 -1 -1 .0 L- 39 KE ti 80 8- 8- 00 MA 40 NC ve 75 20 20 RT 0 E 19 11 11 JR 3 PH AR WI MA LL CY IA # M F [address] 00 05 10 5 28 28 [place] 71 CL Ac EM 04 -0 -1 .0 L- [address] 61 3- 0- 00 MA 73 KE [...] TA 15 0- 0- 00 MA 87 NC ve DI 07 20 20 RT 2 E NE 70 11 11 JR 1 PH 10 AR WI MA LL MG CY IA # M TA F BL 10 ET 05 91 CL 00 09 09 1 60 30 MI 44 Ac ON 37 -3 -3 .0 L- 96 KE ti AZ 81 0- 0- 00 MA 60 NC ve EP 91 20 20 RT 2 E AM 00 11 11 JR 1 PH 0. AR WI 5 MA LL MG CY IA # M TA F BL 10 ET 05 91 LE 00 07 09 5 30 30 MI 71 Ac VO 37 -0 -3 .0 L- 25 KE ti TH 81 2- 0- 00 MA 58 NC ve YR 80 20 20 RT 1 E OX 90 11 11 JR IN 1 PH E AR WI 10 MA LL 0 CY IA MC # M G F TA 10 BL 05 ET 91 AM 00 09 09 1 30 10 MI 71 Ac OX 78 -3 -3 .0 L- 37 KE ti IC 12 0- 0- 00 MA 16 NC ve IL 61 20 20 RT 1 E LI 33 11 11 JR N 1 PH 50 AR WI 0 MA LL MG CY IA # M CA F PS 10 UL 05 E 91 BU 00 05 09 5 12 [address] [place] [address] 59 -1 -1 0. L- 18 KE ti OP 13 2- 8- 00 MA 93 NC ve IO 54 20 20 0 RT 4 E N 06 11 11 JR HC 0 PH L AR WI SR MA LL CY IA 10 # M 0 F MG 10 05 TA 91 BL ET 00 09 09 0 20 10 MI 71 FL Ac 37 -0 -0 .0 L- 34 OR ti 87 8- 8- 00 MA 23 EN ve 09 20 20 RT 8 CE 70 11 11 1 PH SA AR RA MA H CY L # 10 05 91 SE 31 05 09 5 60 30 MI 71 MC Ac RT 72 -1 -0 .0 L- 18 KE ti RA 20 2- 4- 00 MA 93 NC ve LI 21 20 20 RT 3 E NE 43 11 11 JR 0 PH HC AR WI L MA LL 10 CY IA 0 # M MG F 10 TA 05 BL 91 ET 00 08 08 0 21 7 MI 71 HU Ac 37 -2 -2 .0 [...] TH 81 2- 2- 00 MA 58 NC ve YR 80 20 20 RT 1 E OX 90 11 11 JR IN 1 PH E AR WI 10 MA LL 0 CY IA MC # M G F TA 10 BL 05 ET 91 CI 00 08 08 0 20 10 MI [address] 37 -1 -1 .0 L- 31 AR ti OF 87 7- 7- 00 MA 17 KE ve LO 09 20 20 RT 1 XA 80 11 11 DE CI 1 PH RE N AR K HC MA J L CY 50 # 0 MG 10 05 TA 91 B GA 00 03 08 3 90 30 MI 71 HU Ac BA 22 -0 -1 .0 L- 09 NT ti PE 82 4- 6- 00 MA 56 ER ve NT 63 20 20 RT 1 IN 65 11 11 NA 0 PH NC 60 AR Y 0 MA C MG CY # TA BL 10 ET 05 91 00 05 08 5 28 28 MI 71 CL Ac 04 -0 -1 .0 L- 17 AR ti 60 3- 2- 00 MA 73 KE ve 87 20 20 RT 5 51 11 11 DE 1 PH RE AR K MA J CY # 10 05 91 CE 00 06 08 1 30 30 MI 71 MC Ac LE 02 -0 -0 .0 L- 21 KE ti BR 51 3- 8- 00 MA 90 NC ve EX 52 20 20 RT 8 E 53 11 11 JR 20 1 PH 0 AR WI MG MA LL CY IA CA # M PS F UL 10 E 05 91 FE 00 05 08 5 60 30 MI 88 MC Ac RR 57 -1 -0 .0 L- 17 KE ti OU 40 2- 8- 00 MA 99 NC ve S 60 20 20 RT 3 E CINTRON 81 11 11 JR LF 0 PH AR WI EC MA LL CY IA 32 # M 4 F MG 10 05 TA 91 BL ET FO 65 03 08 5 30 30 MI 71 HU Ac LI 16 -2 -0 .0 L- 12 NT ti C 20 3- 8- 00 MA 29 ER ve AC 36 20 20 RT 2 ID 11 11 11 NA 1 1 PH NC AR Y MG MA C CY TA # BL ET 10 05 91 DI 16 07 08 1 30 15 MI 71 MC Ac CL 57 -3 -0 .0 L- 29 KE ti OF 10 1- 2- 00 MA 21 NC ve EN 20 20 20 RT 2 E AC 11 11 11 JR 0 PH SO AR WI D MA LL EC CY IA # M 75 F 10 MG 05 91 TA B BA 00 06 07 5 90 30 MI 71 BE Ac CL 83 -2 -2 .0 L- 24 SS ti OF 21 5- 8- 00 MA 61 ON ve EN 02 20 20 RT [address] 10 9 PH EP AR HE MG MA N CY A TA # BL ET 10 05 91 CI 00 07 07 0 20 10 MI [address] 37 -2 -2 .0 L- 28 ND ti OF 87 5- 5- 00 MA 23 RI ve LO 09 20 20 RT 9 X XA 80 11 11 LA CI 1 PH UR N AR EN HC MA N L CY 50 # 0 MG 10 05 TA 91 B SE 31 05 07 5 60 30 MI 71 MC Ac RT 72 -1 -2 .0 L- 18 KE ti RA 20 2- 4- 00 MA 93 NC ve LI 21 20 20 RT 3 [...] NI 00 07 07 2 30 30 MI 71 MC Ac TR 37 -0 -0 .0 L- 25 KE ti OF 81 2- 2- 00 MA 58 NC ve UR 65 20 20 RT 0 E AN 00 11 11 JR TO 1 PH IN AR WI MA LL MC CY IA R # M 50 F 10 MG 05 91 CA P LE 00 07 07 5 30 30 MI 71 MC Ac VO 37 -0 -0 .0 L- 25 KE ti TH 81 2- 2- 00 MA 58 NC ve YR 80 20 20 RT 1 E OX 90 11 11 JR IN 1 PH E AR WI 10 MA LL 0 CY IA MC # M G F TA 10 BL 05 ET 91 CI 00 06 06 0 20 10 MI [address] 37 -2 -2 .0 L- 24 SS [...] GA 00 06 06 5 90 30 MI 71 BE Ac BA 22 -2 -2 .0 L- 24 SS ti PE 82 5- 5- 00 MA 61 ON ve NT 63 20 20 RT 4 IN [address] 0 PH EP 60 AR HE 0 MA N MG CY A # TA BL 10 ET 05 91 BA 00 06 06 5 90 30 MI 71 BE Ac CL 83 -2 -2 .0 L- 24 SS ti OF 21 5- 5- 00 MA 61 ON ve EN 02 20 20 RT [address] 10 9 PH EP AR HE MG MA N CY A TA # BL ET 10 05 91 FL 00 06 06 0 2. 2 MI 71 FL Ac UC 17 -1 -1 00 L- 23 OR ti ON 25 7- 7- 0 MA 60 EN ve AZ 41 20 20 RT 3 CE OL 21 11 11 E 1 PH SA 15 AR RA 0 MA H MG CY L # TA BL 10 ET 05 91 AZ 00 06 06 0 6. 5 MI 71 FL Ac IT 78 -1 -1 00 L- 23 OR ti HR 11 7- 7- 0 MA 60 EN ve OM 49 20 20 RT 5 CE YC 66 11 11 IN 8 PH SA AR RA 25 MA H 0 CY L MG # TA 10 BL 05 ET 91 BU 00 05 06 5 12 30 MI [address] 59 -1 -0 0. L- 18 KE ti OP 13 2- 8- 00 MA 93 NC ve IO 54 20 20 0 RT 4 E N 06 11 11 JR HC 0 PH L AR WI SR MA LL CY IA 10 # M 0 F MG 10 05 TA 91 BL ET 00 06 06 0 60 15 MI 44 MC Ac 40 -0 -0 .0 L- 94 KE ti 60 3- 3- 00 MA 12 NC ve 35 20 20 RT 6 E 70 11 11 JR 5 PH AR WI MA LL CY IA # M F 10 05 91 CE 00 06 06 1 30 30 MI 71 MC Ac LE 02 -0 -0 .0 L- 21 KE ti BR 51 3- 3- 00 MA 90 NC ve EX 52 20 20 RT 8 E 53 11 11 JR 20 1 PH 0 AR WI MG MA LL CY IA CA # M PS F UL 10 E 05 91 CE 00 06 06 1 20 10 MI 71 MC Ac FD 78 -0 -0 .0 L- 21 KE ti IN 12 3- 3- 00 MA 90 NC ve IR 17 20 20 RT 9 E 66 11 11 JR 30 0 PH 0 AR WI MG MA LL CY IA CA # M PS F UL 10 E 05 91 SE 31 05 05 5 60 30 MI 71 MC Ac RT 72 -1 -2 .0 L- 18 KE ti RA 20 2- 8- 00 MA 93 NC ve LI 21 20 20 RT 3 E NE 43 11 11 JR 0 PH HC AR WI L MA LL 10 CY IA 0 # M MG F 10 TA 05 BL 91 ET LE 00 03 05 2 30 30 MI 71 HU Ac VO 37 -2 -2 .0 L- 12 NT ti TH 81 3- 5- 00 MA 29 ER ve YR 80 20 20 RT 6 OX 90 11 11 NA IN 1 PH NC E AR Y 10 MA C 0 CY MC # G TA 10 BL 05 ET 91 CE 68 05 05 0 28 7 MI 71 CH Ac PH 18 -2 -2 .0 L- 20 ES ti AL 00 2- 2- 00 MA 29 TN ve EX 12 20 20 RT 3 UT IN 20 11 11 1 PH NC 50 AR CH 0 MA AE MG CY L # CA PS 10 UL 05 E 91 FO 65 03 05 5 30 30 MI 71 HU Ac LI 16 -2 -1 .0 L- 12 NT ti C 20 3- 3- 00 MA 29 ER ve AC 36 20 20 RT 2 ID 11 11 11 NA 1 1 PH NC AR Y MG MA C CY TA # BL ET 10 05 91 CR 00 03 05 3 30 30 MI 71 HU Ac ES 31 -2 -1 .0 L- 12 NT ti TO 00 3- 3- 00 MA 29 ER ve R 75 20 20 RT 3 5 59 11 11 NA MG 0 PH NC AR Y TA MA C BL CY ET # 10 05 91 BU 00 05 05 5 12 30 MI [address] 59 -1 -1 0. L- 18 KE ti OP 13 2- 2- 00 MA 93 NC ve IO 54 20 20 0 RT [...] OU 40 2- 2- 00 MA 99 NC ve S 60 20 20 RT 3 [...] 0 20 10 [place] [address] 37 -1 -1 .0 L- 15 NT [...] 0 12 30 [place] [address] 59 -2 -2 0. L- 11 NT [...] 2 90 30 [place] [address] 59 -0 -0 .0 L- 05 TI ti OP 13 8- 8- 00 MA 96 T ve IO 54 20 20 RT 4 IN N 06 11 11 GE HC 0 PH ARTEMIO L AR RG SR MA CY 10 # 0 MG 10 05 TA 91 BL ET CI 00 03 03 0 20 10 [place] [address] 37 -0 -0 .0 L- 09 NT [...] 1 90 30 [place] [address] 59 -1 -0 .0 L- 98 TI ti OP 13 5- 6- 00 MA 65 T ve IO 54 20 20 RT 3 IN N 06 10 11 GE HC 0 PH ARTEMIO L AR RG SR MA CY 10 # 0 MG 10 05 TA 91 BL ET CI 00 01 01 0 14 7 [place] [address] 37 -2 -2 .0 L- 03 OT [...] 2 90 30 [place] [address] 59 -2 -3 .0 L- 87 TI [...] 2 90 30 [place] [address] 59 -2 -2 .0 L- 87 TI [...] 2 90 30 WA [address] 59 -2 -2 .0 L- 87 TI [...] 1 90 30 [place] [address] 59 -0 -1 .0 L- 80 TI [...] 0 20 10 [place] [address] 37 -1 -2 .0 L- 41 CH ti OF 87 6- 7- 00 MA 55 OL ve LO 09 20 20 RT 8 S XA 80 09 10 CHERYL CI 1 PH E N AR A HC MA L CY 50 # 0 MG 10 05 TA 91 B CI 00 08 08 0 20 10 [place] [address] 37 -1 -1 .0 L- 82 KA [...] 1 90 30 [place] [address] 59 -0 -0 .0 L- 80 TI [...] 0 20 10 [place] [address] 37 -2 -2 .0 L- 76 CH [...] 0 20 10 [place] [address] 37 -0 -0 .0 L- 65 GE [...] BORDEN MD (ER) 4 14:32 4 14:51 [facility] Emergency YAIMA Rodriguez MD (ER) 3 16:59 3 18:47 [facility] YAIMA Clark MD (ER) 3 17:45 3 19:12 [facility]
--- OUTSIDE RECORDS SUMMARY | 2017-03-29 03:58 | External Medical Summary Rpt | CCD ---
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 Phone [facility]available [facility], [facility] # Unavailable Unavailable [id number], [facility] # [id number] Purpose Continuity of Care Document - 08-16-2009 through 2016 Medications Na ND Rx Da Fi Fi Am Da Di Ph RX Ph St me C No te ll ll ou ys ag ar # ys at rm s nt no ma ic us Or Da si cy ia de te s n re d NI 47 10 10 0 14 7 WA 71 HO Ac TR 78 -2 -2 [...] RA 20 2- 2- 00 MA 93 PA ve LI 21 20 20 RT 3 E NE 43 11 11 JR 0 PH HC AR WI L MA LL 10 CY IA 0 # M MG F 10 TA 05 BL 91 ET 00 10 10 1 60 30 WA 71 MC Ac 37 -1 -1 .0 L- 39 KE ti 80 8- 8- 00 MA 40 PA ve 75 20 20 RT 0 E 19 11 11 JR 3 PH AR WI MA LL CY IA # M F 10 05 91 MT 00 05 10 5 28 28 WA 71 CL Ac EM 04 -0 -1 .0 L- 17 AR ti MT 61 3- 0- 00 MA 73 KE ve O 10 20 20 RT 5 0. 71 11 11 DE 62 1 PH RE 5- AR K 2. MA J 5 CY MG # TA 10 BL 05 ET 91 AM 00 09 09 1 30 10 WA 71 MC Ac OX 78 -3 -3 .0 L- 37 KE ti IC 12 0- 0- 00 MA 16 PA ve IL 61 20 20 RT 1 E LI 33 11 11 JR N 1 PH 50 AR WI 0 MA LL MG CY IA # M CA F PS 10 UL 05 E 91 LO 00 09 09 3 30 30 NC 88 MC Ac RA 78 -3 -3 .0 L- 18 KE ti TA 15 0- 0- 00 MA 87 PA ve DI 07 20 20 RT 2 E NE 70 11 11 JR 1 PH 10 AR WI MA LL MG CY IA # M TA F BL 10 ET 05 91 CL 00 09 09 1 60 30 NC 44 MC Ac ON 37 -3 -3 .0 L- 96 KE ti AZ 81 0- 0- 00 MA 60 PA ve EP 91 20 20 RT 2 E AM 00 11 11 JR 1 PH 0. AR WI 5 MA LL MG CY IA # M TA F BL 10 ET 05 91 LE 00 07 09 5 30 30 NC 71 MC Ac VO 37 -0 -3 .0 L- 25 KE ti TH 81 2- 0- 00 MA 58 PA ve YR 80 20 20 RT 1 E OX 90 11 11 JR IN 1 PH E AR WI 10 MA LL 0 CY IA MC # M G F TA 10 BL 05 ET 91 BU 00 05 09 5 12 30 NC 71 MC Ac MT 59 -1 -1 0. L- 18 KE ti OP 13 2- 8- 00 MA 93 PA ve IO 54 20 20 0 RT 4 E N 06 11 11 JR HC 0 PH L AR WI SR MA LL CY IA 10 # M 0 F MG 10 05 TA 91 BL ET 00 09 09 0 20 10 NC 71 FL Ac 37 -0 -0 .0 L- 34 OR ti 87 8- 8- 00 MA 23 EN ve 09 20 20 RT 8 CE 70 11 11 1 PH SA AR RA MA H CY L # 10 05 91 SE 31 05 09 5 60 30 NC 71 MC Ac RT 72 -1 -0 .0 L- 18 KE ti RA 20 2- 4- 00 MA 93 PA ve LI 21 20 20 RT 3 E NE 43 11 11 JR 0 PH HC AR WI L MA LL 10 CY IA 0 # M MG F 10 TA 05 BL 91 ET 00 08 08 0 21 7 NC 71 HU Ac 37 -2 -2 .0 L- 31 NT ti 80 3- 3- 00 MA 97 ER ve 77 20 20 RT 2 19 11 11 NA 3 PH NC AR Y MA C CY # 10 05 91 PO 51 08 08 11 52 30 NC 71 HU Ac LY 99 -2 -2 7. L- 31 NT ti ET 10 3- 3- 00 MA 97 ER ve HY 45 20 20 0 RT 4 LE 75 11 11 NA NE 7 PH NC AR Y GL MA C YC CY OL # 33 10 50 05 91 PO WD LE 00 07 08 5 30 30 NC 71 MC Ac VO 37 -0 -2 .0 L- 25 KE ti TH 81 2- 2- 00 MA 58 PA ve YR 80 20 20 RT 1 E OX 90 11 11 JR IN 1 PH E AR WI 10 MA LL 0 CY IA MC # M G F TA 10 BL 05 ET 91 CI 00 08 08 0 20 10 NC 71 CL Ac MT 37 -1 -1 .0 L- 31 AR ti OF 87 7- 7- 00 MA 17 KE ve LO 09 20 20 RT 1 XA 80 11 11 DE CI 1 PH RE N AR K HC MA J L CY 50 # 0 MG 10 05 TA 91 B GA 00 03 08 3 90 30 NC 71 HU Ac BA 22 -0 -1 .0 L- 09 NT ti PE 82 4- 6- 00 MA 56 ER ve NT 63 20 20 RT 1 IN 65 11 11 NA 0 PH NC 60 AR Y 0 MA C MG CY # TA BL 10 ET 05 91 00 05 08 5 28 28 NC 71 CL Ac 04 -0 -1 .0 L- 17 AR ti 60 3- 2- 00 MA 73 KE ve 87 20 20 RT 5 51 11 11 DE 1 PH RE AR K MA J CY # 10 05 91 FE 00 05 08 5 60 30 WA 88 MC Ac RR 57 -1 -0 .0 L- 17 KE ti OU 40 2- 8- 00 MA 99 PA ve S 60 20 20 RT 3 E CINTRON 81 11 11 JR LF 0 PH AR WI EC MA LL CY IA 32 # M 4 F MG 10 05 TA 91 BL ET CE 00 06 08 1 30 30 NC 71 MC Ac LE 02 -0 -0 .0 L- 21 KE ti BR 51 3- 8- 00 MA 90 PA ve EX 52 20 20 RT 8 E 53 11 11 JR 20 1 PH 0 AR WI MG MA LL CY IA CA # M PS F UL 10 E 05 91 FO 65 03 08 5 30 30 WA 71 HU Ac LI 16 -2 -0 .0 L- 12 NT ti C 20 3- 8- 00 MA 29 ER ve AC 36 20 20 RT 2 ID 11 11 11 NA 1 1 PH NC AR Y MG MA C CY TA # BL ET 10 05 91 DI 16 07 08 1 30 15 NC 71 MC Ac CL 57 -3 -0 .0 L- 29 KE ti OF 10 1- 2- 00 MA 21 PA ve EN 20 20 20 RT 2 E AC 11 11 11 JR 0 PH SO AR WI D MA LL EC CY IA # M 75 F 10 MG 05 91 TA B BA 00 06 07 5 90 30 WA 71 BE Ac CL 83 -2 -2 .0 L- 24 SS ti OF 21 5- 8- 00 MA 61 ON ve EN 02 20 20 RT [address] 10 9 PH EP AR HE MG MA N CY A TA # BL ET 10 05 91 CI 00 07 07 0 20 10 71 HE Ac MT 37 -2 -2 .0 L- 28 ND ti OF 87 5- 5- 00 MA 23 RI ve LO 09 20 20 RT 9 X XA 80 11 11 LA CI 1 PH UR N AR EN HC MA N L CY 50 # 0 MG 10 05 TA 91 B SE 31 05 07 5 60 30 WA 71 MC Ac RT 72 -1 -2 .0 L- 18 KE ti RA 20 2- 4- 00 MA 93 PA ve LI 21 20 20 RT 3 [...] NI 00 07 07 2 30 30 71 MC Ac TR 37 -0 -0 .0 L- 25 KE ti OF 81 2- 2- 00 MA 58 PA ve UR 65 20 20 RT 0 E AN 00 11 11 JR TO 1 PH IN AR WI MA LL MC CY IA R # M 50 F 10 MG 05 91 CA P LE 00 07 07 5 30 30 71 MC Ac VO 37 -0 -0 .0 L- 25 KE ti TH 81 2- 2- 00 MA 58 PA ve YR 80 20 20 RT 1 E OX 90 11 11 JR IN 1 PH E AR WI 10 MA LL 0 CY IA MC # M G F TA 10 BL 05 ET 91 CI 00 06 06 0 20 10 71 BE Ac MT 37 -2 -2 .0 L- 24 SS ti OF 87 5- 5- 00 MA 61 ON ve LO 09 20 20 RT 2 XA [address] CI 1 PH EP N AR HE HC MA N L CY A 50 # 0 MG 10 05 TA 91 B NI 00 06 06 0 20 10 NC 71 BE Ac TR 37 -2 -2 .0 L- 24 SS ti OF 83 5- 5- 00 MA 61 ON ve UR 42 20 20 RT 3 AN [address] TO 1 PH EP IN AR HE MA N MO CY A NO # -M CR 10 05 10 91 0 MG GA 00 06 06 5 90 30 NC 71 BE Ac BA 22 -2 -2 .0 L- 24 SS ti PE 82 5- 5- 00 MA 61 ON ve NT 63 20 20 RT 4 IN [address] 0 PH EP 60 AR HE 0 MA N MG CY A # TA BL 10 ET 05 91 BA 00 06 06 5 90 30 NC 71 BE Ac CL 83 -2 -2 .0 L- 24 SS ti OF 21 5- 5- 00 MA 61 ON ve EN 02 20 20 RT [address] 10 9 PH EP AR HE MG MA N CY A TA # BL ET 10 05 91 FL 00 06 06 0 2. 2 NC 71 FL Ac UC 17 -1 -1 00 L- 23 OR ti ON 25 7- 7- 0 MA 60 EN ve AZ 41 20 20 RT 3 CE OL 21 11 11 E 1 PH SA 15 AR RA 0 MA H MG CY L # TA BL 10 ET 05 91 AZ 00 06 06 0 6. 5 NC 71 FL Ac IT 78 -1 -1 00 L- 23 OR ti HR 11 7- 7- 0 MA 60 EN ve OM 49 20 20 RT 5 CE YC 66 11 11 IN 8 PH SA AR RA 25 MA H 0 CY L MG # TA 10 BL 05 ET 91 BU 00 05 06 5 12 30 NC 71 MC Ac MT 59 -1 -0 0. L- 18 KE ti OP 13 2- 8- 00 MA 93 PA ve IO 54 20 20 0 RT 4 E N 06 11 11 JR HC 0 PH L AR WI SR MA LL CY IA 10 # M 0 F MG 10 05 TA 91 BL ET 00 06 06 0 60 15 NC 44 MC Ac 40 -0 -0 .0 L- 94 KE ti 60 3- 3- 00 MA 12 PA ve 35 20 20 RT 6 E 70 11 11 JR 5 PH AR WI MA LL CY IA # M F 10 05 91 CE 00 06 06 1 30 30 NC 71 MC Ac LE 02 -0 -0 .0 L- 21 KE ti BR 51 3- 3- 00 MA 90 PA ve EX 52 20 20 RT 8 E 53 11 11 JR 20 1 PH 0 AR WI MG MA LL CY IA CA # M PS F UL 10 E 05 91 CE 00 06 06 1 20 10 NC 71 Ac FD 78 -0 -0 .0 L- 21 KE ti IN 12 3- 3- 00 MA 90 PA ve IR 17 20 20 RT 9 E 66 11 11 JR 30 0 PH 0 AR WI MG MA LL CY IA CA # M PS F UL 10 E 05 91 SE 31 05 05 5 60 30 NC 71 Ac RT 72 -1 -2 .0 L- 18 KE ti RA 20 2- 8- 00 MA 93 PA ve LI 21 20 20 RT 3 E NE 43 11 11 JR 0 PH HC AR WI L MA LL 10 CY IA 0 # M MG F 10 TA 05 BL 91 ET LE 00 03 05 2 30 30 NC 71 HU Ac VO 37 -2 -2 .0 L- 12 NT ti TH 81 3- 5- 00 MA 29 ER ve YR 80 20 20 RT 6 OX 90 11 11 NA IN 1 PH NC E AR Y 10 MA C 0 CY MC # G TA 10 BL 05 ET 91 CE 68 05 05 0 28 7 NC 71 Ac PH 18 -2 -2 .0 L- 20 ES ti AL 00 2- 2- 00 MA 29 TN ve EX 12 20 20 RT 3 UT IN 20 11 11 1 PH PA 50 AR CH 0 MA AE MG CY L # CA PS 10 UL 05 E 91 FO 65 03 05 5 30 30 NC 71 Ac LI 16 -2 -1 .0 L- 12 NT ti C 20 3- 3- 00 MA 29 ER ve AC 36 20 20 RT 2 ID 11 11 11 NA 1 1 PH NC AR Y MG MA C CY TA # BL ET 10 05 91 CR 00 03 05 3 30 30 NC 71 Ac ES 31 -2 -1 .0 L- 12 NT ti TO 00 3- 3- 00 MA 29 ER ve R 75 20 20 RT 3 5 59 11 11 NA MG 0 PH NC AR Y TA MA C BL CY ET # 10 05 91 BU 00 05 05 5 12 30 NC 71 MC Ac MT 59 -1 -1 0. L- 18 KE ti OP 13 2- 2- 00 MA 93 PA ve IO 54 20 20 0 RT [...] OU 40 2- 2- 00 MA 99 PA ve S 60 20 20 RT 3 [...] SE 54 03 05 1 60 30 NC 71 PE Ac RT 45 -0 -0 .0 L- 10 TI ti RA 80 8- 1- 00 MA 13 T ve LI 94 20 20 RT 1 IN NE 51 11 11 GE 0 PH ARTEMIO HC AR RG L MA 10 CY 0 # MG 10 TA 05 BL 91 ET LE 00 03 04 2 30 30 NC 71 HU Ac VO 37 -2 -2 .0 L- 12 NT ti TH 81 3- 3- 00 MA 29 ER ve YR 80 20 20 RT 6 OX 90 11 11 NA IN 1 PH NC E AR Y 10 MA C 0 CY MC # G TA 10 BL 05 ET 91 FL 00 04 04 0 5. 5 NC 71 HU Ac UC 17 -1 -1 00 L- 15 NT ti ON 25 9- 9- 0 MA 85 ER ve AZ 41 20 20 RT 7 OL 14 11 11 NA E 6 PH NC 10 AR Y 0 MA C MG CY # TA BL 10 ET 05 91 VE 00 04 04 0 90 30 NC 71 HU Ac NL 09 -1 -1 .0 L- 15 NT ti AF 37 5- 5- 00 MA 38 ER ve AX 38 20 20 RT 2 IN 00 11 11 NA E 1 PH NC HC AR Y L MA C 37 CY .5 # MG 10 05 TA 91 BL ET CI 00 04 04 0 20 10 NC 71 HU Ac MT 37 -1 -1 .0 L- 15 NT [...] S IC AL PH AR MA CY CR 00 03 03 3 30 30 WA 71 HU Ac ES 31 -2 -2 .0 L- 12 NT ti TO 00 3- 3- 00 MA 29 ER ve R 75 20 20 RT 3 5 59 11 11 NA MG 0 PH NC AR Y TA MA C BL CY ET # 10 05 91 LE 00 03 03 2 30 30 WA 71 HU Ac VO 37 -2 -2 .0 L- 12 NT ti TH 81 3- 3- 00 MA 29 ER ve YR 80 20 20 RT 6 OX 90 11 11 NA IN 1 PH NC E AR Y 10 MA C 0 CY MC # G TA 10 BL 05 ET 91 CY 00 03 03 1 30 36 WA 71 HU Ac AN 51 -2 -2 .0 5 L- 12 NT ti OC 70 3- 3- 00 MA 32 ER ve OB 13 20 20 RT 1 AL 00 11 11 NA AM 5 PH NC IN AR Y MA C 1, CY 00 # 0 MC 10 G/ 05 ML 91 DO 53 03 03 0 20 10 NC 71 HU Ac XY 48 -2 -2 .0 L- 12 NT ti CY 90 3- 3- 00 MA 29 ER ve CL 12 20 20 RT 1 IN 00 11 11 NA E 2 PH NC HY AR Y CL MA C AT CY E # 10 0 10 MG 05 91 TA B FO 65 03 03 5 30 30 NC 71 HU Ac LI 16 -2 -2 .0 L- 12 NT ti C 20 3- 3- 00 MA 29 ER ve AC 36 20 20 RT 2 ID 11 11 11 NA 1 1 PH NC AR Y MG MA C CY TA # BL ET 10 05 91 BU 00 03 03 0 12 30 WA 71 HU Ac MT 59 -2 -2 0. L- 11 NT [...] 2 90 30 WA 71 PE Ac MT 59 -0 -0 .0 L- 05 TI ti OP 13 8- 8- 00 MA 96 T ve IO 54 20 20 RT 4 IN N 06 11 11 GE HC 0 PH ARTEMIO L AR RG SR MA CY 10 # 0 MG 10 05 TA 91 BL ET CI 00 03 03 0 20 10 WA 71 HU Ac MT 37 -0 -0 .0 L- 09 NT [...] 1 90 30 WA 70 PE Ac MT 59 -1 -0 .0 L- 98 TI ti OP 13 5- 6- 00 MA 65 T ve IO 54 20 20 RT 3 IN N 06 10 11 GE HC 0 PH ARTEMIO L AR RG SR MA CY 10 # 0 MG 10 05 TA 91 BL ET CI 00 01 01 0 14 7 WA 71 WO Ac MT 37 -2 -2 .0 L- 03 OT [...] # R BL ET 10 05 91 LE 00 01 01 2 30 30 WA 71 NI Ac VO 37 -1 -1 .0 L- 02 CH ti TH 81 4 4 00 MA 49 OL ve YR 80 20 20 RT 3 S OX 50 11 11 CHEYRL IN 1 PH E E AR A 75 MA CY MC # G TA 10 BL 05 ET 91 ME 64 01 01 5 60 30 WA 71 ER Ac TH 72 -1 -1 .0 L- 02 IC ti EN 00 4 00 MA 45 KS ve AM 13 20 20 RT 9 ON IN 91 11 11 E 0 PH DE HI AR ARTEMIO PP MA RA 1 CY H # R GM 10 TA 05 BL 91 ET BU 00 09 12 2 90 30 WA 70 PE Ac MT 59 -2 -3 .0 L- 87 TI ti OP 13 1- 1- 00 MA 86 T ve IO 54 20 20 RT 0 IN N 06 10 10 GE HC 0 PH ARTEMIO L AR RG SR MA CY 10 # 0 MG 10 05 TA 91 BL ET ATREMIO 00 12 12 0 3. 1 KE [...] .0 L- 00 CH ti BR 51 9 9 00 MA 31 OL ve EX 52 20 20 RT 6 S 53 10 10 CHERYL 20 1 PH E 0 AR A MG MA CY CA # PS UL 10 E 05 91 DI 00 12 12 0 90 30 WA 44 NI Ac AZ 37 -2 -2 .0 L- 90 CH ti EP 80 2- 2- 00 MA 62 OL ve AM 34 20 20 RT 9 S 5 50 10 10 CHERYL 5 PH E MG AR A MA TA CY BL # ET 10 05 91 IB 68 12 12 0 15 5 WA 70 NI Ac UP 64 -2 -2 .0 L- 99 CH ti RO 50 2- 2- 00 MA 52 OL ve FE 22 20 20 RT 1 S N 25 10 10 CHERYL 80 4 PH E 0 AR A MG MA CY TA # BL ET 10 05 91 SE 31 09 12 2 60 30 WA 70 PE Ac RT 72 -2 -2 .0 L- 87 TI ti RA 20 1- 2- 00 MA 85 T ve LI 21 20 20 RT 9 IN NE 43 10 10 GE 0 PH ARTEMIO HC AR RG L MA 10 CY 0 # MG 10 TA 05 BL 91 ET 00 12 12 0 10 2 WA [...] IA # M E 10 05 91 AC 00 12 12 0 10 3 [...] RT CY W # 10 05 91 AC 00 11 11 0 [address] Ac ET 60 -2 -2 .0 L- 89 EP ti AM 32 2- 2- 00 MA 97 HE ve IN 33 20 20 RT 8 NS OP 83 10 10 HE 2 PH KE N- AR CO MA N D CY C #3 # TA 10 BL 05 ET 91 AM 00 11 11 0 [address] Ac OX 78 -2 -2 .0 L- 95 EP ti IC 12 2- 2- 00 MA 49 HE ve IL 61 20 20 RT 8 NS LI 33 10 10 N 1 PH KE 50 AR 0 MA N MG CY C # CA PS 10 UL 05 E 91 SE 31 09 11 2 60 30 WA 70 PE Ac RT 72 -2 -2 .0 L- 87 TI ti RA 20 1- 1- 00 MA 85 T ve LI 21 20 20 RT 9 IN NE 43 10 10 GE 0 PH ARTEMIO HC AR RG L MA 10 CY 0 # MG 10 TA 05 BL 91 ET BU 00 09 11 2 90 30 WA 70 PE Ac MT 59 -2 -2 .0 L- 87 TI ti OP 13 1- 1- 00 MA 86 T ve IO 54 20 20 RT 0 IN N 06 10 10 GE HC 0 PH ARTEMIO L AR RG SR MA CY 10 # 0 MG 10 05 TA 91 BL ET DI 00 11 11 4 30 [...] RT 0 S OX 50 10 10 CHREYL IN 1 PH E E AR A 75 MA CY MC # G TA 10 BL 05 ET 91 BU 00 09 10 2 90 30 WA 70 PE Ac MT 59 -2 -2 .0 L- 87 TI ti OP 13 1- 0- 00 MA 86 T ve IO 54 20 20 RT 0 IN N 06 10 10 GE HC 0 PH ARTEMIO L AR RG SR MA CY 10 # 0 MG 10 05 TA 91 BL ET SE 54 09 10 2 60 30 WA 70 PE Ac RT 45 -2 -2 .0 L- 87 TI ti RA 80 1- 0- 00 MA 85 T ve LI 94 20 20 RT 9 IN NE 51 10 10 GE 0 PH ARTEMIO HC AR RG L MA 10 CY 0 # MG 10 TA 05 BL 91 ET LE 00 06 10 5 30 [...] 1 90 30 WA 70 PE Ac MT 59 -0 -1 .0 L- 80 TI [...] 0 20 10 WA 70 NI Ac MT 37 -1 -2 .0 L- 41 CH ti OF 87 6- 7- 00 MA 55 OL ve LO 09 20 20 RT 8 S XA 80 09 10 CHERYL CI 1 PH E N AR A HC MA L CY 50 # 0 MG 10 05 TA 91 B CI 00 08 08 0 20 10 WA 70 SO Ac MT 37 -1 -1 .0 L- 82 KA [...] 1 90 30 WA 70 PE Ac MT 59 -0 -0 .0 L- 80 TI [...] 0 20 10 WA 70 NI Ac MT 37 -2 -2 .0 L- 76 CH [...] MG 10 TA 05 BL 91 ET 00 04 04 0 20 2 WA 44 DU Ac 40 -2 -2 .0 L- 85 SS ti 60 8- 8- 00 MA 21 EA ve 35 20 20 RT 7 UL 70 10 10 T 5 PH BE AR AU MA N CY # 10 05 91 CE 68 04 04 0 30 10 WA 70 DU Ac PH 18 -2 -2 .0 L- 68 SS ti AL 00 8- 8- 00 MA 60 EA ve EX 12 20 20 RT 1 UL IN 20 10 10 T 1 PH BE 50 AR AU 0 MA N MG CY # CA PS 10 UL 05 E 91 NI 00 02 04 5 30 [...] 0 20 10 WA 70 RO Ac MT 37 -0 -0 .0 L- 65 GE [...]
--- OUTSIDE RECORDS SUMMARY | 2017-03-29 03:58 | External Medical Summary Rpt | CCD ---
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 Phone [facility] Unavailable Unavailable [facility]ARM[facility], [facility] # Unavailable Unavailable [id number], [facility] # [id number] Purpose Continuity of Care Document - 08-16-2009 [...] RA 20 2- 2- 00 MA 93 MO ve LI 21 20 20 RT 3 E NE 43 11 11 JR 0 PH HC AR WI L MA LL 10 CY IA 0 # M MG F 10 TA 05 BL 91 ET 00 10 10 1 60 30 WA 71 MC Ac 37 -1 -1 .0 L- 39 KE ti 80 8- 8- 00 MA 40 MO ve 75 20 20 RT 0 E 19 11 11 JR 3 PH AR WI MA LL CY IA # M F 10 05 91 MA 00 05 10 5 28 28 WA 71 CL Ac EM 04 -0 -1 .0 L- 17 AR ti MA 61 3- 0- 00 MA 73 KE [...] IC 12 0- 0- 00 MA 16 MO ve IL 61 20 20 RT 1 E LI 33 11 11 JR N 1 PH 50 AR WI 0 MA LL MG CY IA # M CA F PS 10 UL 05 E 91 LO 00 09 09 3 30 30 OR 88 MC Ac RA 78 -3 -3 .0 L- 18 KE ti TA 15 0- 0- 00 MA 87 MO ve DI 07 20 20 RT 2 E NE 70 11 11 JR 1 PH 10 AR WI MA LL MG CY IA # M TA F BL 10 ET 05 91 CL 00 09 09 1 60 30 OR 44 MC Ac ON 37 -3 -3 .0 L- 96 KE ti AZ 81 0- 0- 00 MA 60 MO ve EP 91 20 20 RT 2 E AM 00 11 11 JR 1 PH 0. AR WI 5 MA LL MG CY IA # M TA F BL 10 ET 05 91 LE 00 07 09 5 30 30 OR 71 MC Ac VO 37 -0 -3 .0 L- 25 KE ti TH 81 2- 0- 00 MA 58 MO ve YR 80 20 20 RT 1 E OX 90 11 11 JR IN 1 PH E AR WI 10 MA LL 0 CY IA MC # M G F TA 10 BL 05 ET 91 BU 00 05 09 5 12 30 OR 71 MC Ac MA 59 -1 -1 0. L- 18 KE ti OP 13 2- 8- 00 MA 93 MO ve IO 54 20 20 0 RT 4 E N 06 11 11 JR HC 0 PH L AR WI SR MA LL CY IA 10 # M 0 F MG 10 05 TA 91 BL ET 00 09 09 0 20 10 OR 71 FL Ac 37 -0 -0 .0 L- 34 OR ti 87 8- 8- 00 MA 23 EN ve 09 20 20 RT 8 CE 70 11 11 1 PH SA AR RA MA H CY L # 10 05 91 SE 31 05 09 5 60 30 OR 71 MC Ac RT 72 -1 -0 .0 L- 18 KE ti RA 20 2- 4- 00 MA 93 MO ve LI 21 20 20 RT 3 E NE 43 11 11 JR 0 PH HC AR WI L MA LL 10 CY IA 0 # M MG F 10 TA 05 BL 91 ET 00 08 08 0 21 7 OR 71 HU Ac 37 -2 -2 .0 L- 31 NT ti 80 3- 3- 00 MA 97 ER ve 77 20 20 RT 2 19 11 11 NA 3 PH NC AR Y MA C CY # 10 05 91 PO 51 08 08 11 52 30 OR 71 HU Ac LY 99 -2 -2 7. L- 31 NT ti ET 10 3- 3- 00 MA 97 ER ve HY 45 20 20 0 RT 4 LE 75 11 11 NA NE 7 PH NC AR Y GL MA C YC CY OL # 33 10 50 05 91 PO WD LE 00 07 08 5 30 30 OR 71 MC Ac VO 37 -0 -2 .0 L- 25 KE ti TH 81 2- 2- 00 MA 58 MO ve YR 80 20 20 RT 1 E OX 90 11 11 JR IN 1 PH E AR WI 10 MA LL 0 CY IA MC # M G F TA 10 BL 05 ET 91 CI 00 08 08 0 20 10 OR 71 CL Ac MA 37 -1 -1 .0 L- 31 AR ti OF 87 7- 7- 00 MA 17 KE ve LO 09 20 20 RT 1 XA 80 11 11 DE CI 1 PH RE N AR K HC MA J L CY 50 # 0 MG 10 05 TA 91 B GA 00 03 08 3 90 30 OR 71 HU Ac BA 22 -0 -1 .0 L- 09 NT ti PE 82 4- 6- 00 MA 56 ER ve NT 63 20 20 RT 1 IN 65 11 11 NA 0 PH NC 60 AR Y 0 MA C MG CY # TA BL 10 ET 05 91 00 05 08 5 28 28 OR 71 CL Ac 04 -0 -1 .0 [...] OU 40 2- 8- 00 MA 99 MO ve S 60 20 20 RT 3 E CINTRON 81 11 11 JR LF 0 PH AR WI EC MA LL CY IA 32 # M 4 F MG 10 05 TA 91 BL ET CE 00 06 08 1 30 30 OR 71 MC Ac LE 02 -0 -0 .0 L- 21 KE ti BR 51 3- 8- 00 MA 90 MO ve EX 52 20 20 RT 8 [...] DI 16 07 08 1 30 15 OR 71 MC Ac CL 57 -3 -0 .0 L- 29 KE ti OF 10 1- 2- 00 MA 21 MO ve EN 20 20 20 RT 2 [...] 07 0 20 10 71 HE Ac MA 37 -2 -2 .0 L- 28 ND [...] RA 20 2- 4- 00 MA 93 MO ve LI 21 20 20 RT 3 [...] OF 81 2- 2- 00 MA 58 MO ve UR 65 20 20 RT 0 E AN 00 11 11 JR TO 1 PH IN AR WI MA LL MC CY IA R # M 50 F 10 MG 05 91 CA P LE 00 07 07 5 30 30 71 MC Ac VO 37 -0 -0 .0 L- 25 KE ti TH 81 2- 2- 00 MA 58 MO ve YR 80 20 20 RT 1 E OX 90 11 11 JR IN 1 PH E AR WI 10 MA LL 0 CY IA MC # M G F TA 10 BL 05 ET 91 CI 00 06 06 0 20 10 71 BE Ac MA 37 -2 -2 .0 L- 24 SS ti OF 87 5- 5- 00 MA 61 ON ve LO 09 20 20 RT 2 XA [address] CI 1 PH EP N AR HE HC MA N L CY A 50 # 0 MG 10 05 TA 91 B NI 00 06 06 0 20 10 OR 71 BE Ac TR 37 -2 -2 .0 L- 24 SS ti OF 83 5- 5- 00 MA 61 ON ve UR 42 20 20 RT 3 AN [address] TO 1 PH EP IN AR HE MA N MO CY A NO # -M CR 10 05 10 91 0 MG GA 00 06 06 5 90 30 OR 71 BE Ac BA 22 -2 -2 .0 L- 24 SS ti PE 82 5- 5- 00 MA 61 ON ve NT 63 20 20 RT 4 IN [address] 0 PH EP 60 AR HE 0 MA N MG CY A # TA BL 10 ET 05 91 BA 00 06 06 5 90 30 OR 71 BE Ac CL 83 -2 -2 .0 L- 24 SS ti OF 21 5- 5- 00 MA 61 ON ve EN 02 20 20 RT [address] 10 9 PH EP AR HE MG MA N CY A TA # BL ET 10 05 91 FL 00 06 06 0 2. 2 OR 71 FL Ac UC 17 -1 -1 00 L- 23 OR ti ON 25 7- 7- 0 MA 60 EN ve AZ 41 20 20 RT 3 CE OL 21 11 11 E 1 PH SA 15 AR RA 0 MA H MG CY L # TA BL 10 ET 05 91 AZ 00 06 06 0 6. 5 OR 71 FL Ac IT 78 -1 -1 00 L- 23 OR ti HR 11 7- 7- 0 MA 60 EN ve OM 49 20 20 RT 5 CE YC 66 11 11 IN 8 PH SA AR RA 25 MA H 0 CY L MG # TA 10 BL 05 ET 91 BU 00 05 06 5 12 30 OR 71 MC Ac MA 59 -1 -0 0. L- 18 KE ti OP 13 2- 8- 00 MA 93 MO ve IO 54 20 20 0 RT 4 E N 06 11 11 JR HC 0 PH L AR WI SR MA LL CY IA 10 # M 0 F MG 10 05 TA 91 BL ET 00 06 06 0 60 15 OR 44 MC Ac 40 -0 -0 .0 L- 94 KE ti 60 3- 3- 00 MA 12 MO ve 35 20 20 RT 6 E 70 11 11 JR 5 PH AR WI MA LL CY IA # M F 10 05 91 CE 00 06 06 1 30 30 OR 71 MC Ac LE 02 -0 -0 .0 L- 21 KE ti BR 51 3- 3- 00 MA 90 MO ve EX 52 20 20 RT 8 E 53 11 11 JR 20 1 PH 0 AR WI MG MA LL CY IA CA # M PS F UL 10 E 05 91 CE 00 06 06 1 20 10 OR 71 Ac FD 78 -0 -0 .0 L- 21 KE ti IN 12 3- 3- 00 MA 90 MO ve IR 17 20 20 RT 9 E 66 11 11 JR 30 0 PH 0 AR WI MG MA LL CY IA CA # M PS F UL 10 E 05 91 SE 31 05 05 5 60 30 OR 71 Ac RT 72 -1 -2 .0 L- 18 KE ti RA 20 2- 8- 00 MA 93 MO ve LI 21 20 20 RT 3 E NE 43 11 11 JR 0 PH HC AR WI L MA LL 10 CY IA 0 # M MG F 10 TA 05 BL 91 ET LE 00 03 05 2 30 30 OR 71 HU Ac VO 37 -2 -2 .0 L- 12 NT ti TH 81 3- 5- 00 MA 29 ER ve YR 80 20 20 RT 6 OX 90 11 11 NA IN 1 PH NC E AR Y 10 MA C 0 CY MC # G TA 10 BL 05 ET 91 CE 68 05 05 0 28 7 OR 71 Ac PH 18 -2 -2 .0 L- 20 ES ti AL 00 2- 2- 00 MA 29 TN ve EX 12 20 20 RT 3 UT IN 20 11 11 1 PH MO 50 AR CH 0 MA AE MG CY L # CA PS 10 UL 05 E 91 FO 65 03 05 5 30 30 OR 71 Ac LI 16 -2 -1 .0 L- 12 NT ti C 20 3- 3- 00 MA 29 ER ve AC 36 20 20 RT 2 ID 11 11 11 NA 1 1 PH NC AR Y MG MA C CY TA # BL ET 10 05 91 CR 00 03 05 3 30 30 OR 71 Ac ES 31 -2 -1 .0 L- 12 NT ti TO 00 3- 3- 00 MA 29 ER ve R 75 20 20 RT 3 5 59 11 11 NA MG 0 PH NC AR Y TA MA C BL CY ET # 10 05 91 BU 00 05 05 5 12 30 OR 71 MC Ac MA 59 -1 -1 0. L- 18 KE ti OP 13 2- 2- 00 MA 93 MO ve IO 54 20 20 0 RT [...] OU 40 2- 2- 00 MA 99 MO ve S 60 20 20 RT 3 [...] SE 54 03 05 1 60 30 OR 71 PE Ac RT 45 -0 -0 .0 L- 10 TI ti RA 80 8- 1- 00 MA 13 T ve LI 94 20 20 RT 1 IN NE 51 11 11 GE 0 PH ARTEMIO HC AR RG L MA 10 CY 0 # MG 10 TA 05 BL 91 ET LE 00 03 04 2 30 30 OR 71 HU Ac VO 37 -2 -2 .0 L- 12 NT ti TH 81 3- 3- 00 MA 29 ER ve YR 80 20 20 RT 6 OX 90 11 11 NA IN 1 PH NC E AR Y 10 MA C 0 CY MC # G TA 10 BL 05 ET 91 FL 00 04 04 0 5. 5 OR 71 HU Ac UC 17 -1 -1 00 L- 15 NT ti ON 25 9- 9- 0 MA 85 ER ve AZ 41 20 20 RT 7 OL 14 11 11 NA E 6 PH NC 10 AR Y 0 MA C MG CY # TA BL 10 ET 05 91 VE 00 04 04 0 90 30 OR 71 HU Ac NL 09 -1 -1 .0 L- 15 NT ti AF 37 5- 5- 00 MA 38 ER ve AX 38 20 20 RT 2 IN 00 11 11 NA E 1 PH NC HC AR Y L MA C 37 CY .5 # MG 10 05 TA 91 BL ET CI 00 04 04 0 20 10 OR 71 HU Ac MA 37 -1 -1 .0 L- 15 NT [...] DO 53 03 03 0 20 10 OR 71 HU Ac XY 48 -2 -2 .0 L- 12 NT ti CY 90 3- 3- 00 MA 29 ER ve CL 12 20 20 RT 1 IN 00 11 11 NA E 2 PH NC HY AR Y CL MA C AT CY E # 10 0 10 MG 05 91 TA B FO 65 03 03 5 30 30 OR 71 HU Ac LI 16 -2 -2 .0 L- 12 NT ti C 20 3- 3- 00 MA 29 ER ve AC 36 20 20 RT 2 ID 11 11 11 NA 1 1 PH NC AR Y MG MA C CY TA # BL ET 10 05 91 BU 00 03 03 0 12 30 WA 71 HU Ac MA 59 -2 -2 0. L- 11 NT [...] 2 90 30 WA 71 PE Ac MA 59 -0 -0 .0 L- 05 TI ti OP 13 8- 8- 00 MA 96 T ve IO 54 20 20 RT 4 IN N 06 11 11 GE HC 0 PH ARTEMIO L AR RG SR MA CY 10 # 0 MG 10 05 TA 91 BL ET CI 00 03 03 0 20 10 WA 71 HU Ac MA 37 -0 -0 .0 L- 09 NT [...] 1 90 30 WA 70 PE Ac MA 59 -1 -0 .0 L- 98 TI ti OP 13 5- 6- 00 MA 65 T ve IO 54 20 20 RT 3 IN N 06 10 11 GE HC 0 PH ARTEMIO L AR RG SR MA CY 10 # 0 MG 10 05 TA 91 BL ET CI 00 01 01 0 14 7 WA 71 WO Ac MA 37 -2 -2 .0 L- 03 OT [...] 2 90 30 WA 70 PE Ac MA 59 -2 -3 .0 L- 87 TI [...] 2 90 30 WA 70 PE Ac MA 59 -2 -2 .0 L- 87 TI [...] 2 90 30 WA 70 PE Ac MA 59 -2 -2 .0 L- 87 TI [...] 1 90 30 WA 70 PE Ac MA 59 -0 -1 .0 L- 80 TI [...] 0 20 10 WA 70 NI Ac MA 37 -1 -2 .0 L- 41 CH ti OF 87 6- 7- 00 MA 55 OL ve LO 09 20 20 RT 8 S XA 80 09 10 CHERYL CI 1 PH E N AR A HC MA L CY 50 # 0 MG 10 05 TA 91 B CI 00 08 08 0 20 10 WA 70 SO Ac MA 37 -1 -1 .0 L- 82 KA [...] 1 90 30 WA 70 PE Ac MA 59 -0 -0 .0 L- 80 TI [...] 0 20 10 WA 70 NI Ac MA 37 -2 -2 .0 L- 76 CH [...] 10 E 6 PH DE 10 AR RATEMIO 0 MA RA MG CY H # [...] 0 20 10 WA 70 RO Ac MA 37 -0 -0 .0 L- 65 GE [...]
--- OUTSIDE RECORDS SUMMARY | 2017-03-29 03:59 | External Medical Summary Rpt | CCD ---
Author Author , NICOLÁS MONZON Address Unknown Phone [email or web address] Immunization Name Date Rout CVX Reac Dose Comm Prov Is Faci e tion ent ider Refu lity Give sed n Infl 09-2 Intr 0.5 Hist PD20 No PD20 uenz 5-20 amus mL oric 255 255 a 17 cula al Quad r Info rmat W/Pr ion es - Sour ce Unsp ecif ied
--- OUTSIDE RECORDS SUMMARY | 2017-03-29 03:59 | External Medical Summary Rpt ---
Author Author NICOLÁS Amaro, N[employer]OL[employer]S [employer] Organization [employer] Address Unknown Phone Unavailable Results Amylase [Enzymatic activity/volume] in Serum or Plasma Observa Value Referen Units Interpr Notes Date tion ce etation Range Amylase 25 - 115 U/L Normal No Sep 23 [Enzymati informati 2017 c on in 10:50 PM activity/ source volume] data in Serum or Plasma Comprehensive metabolic 2000 panel in Serum or Plasma Observa Value Referen Units Interpr Notes Date tion ce etation Range Albumin/G 1.1 - 1.8 No Low No Sep 23 lobulin informati informati 2017 [Mass on in on in 10:50 PM ratio] in source source Serum or data data Plasma Albumin 3.4 - 5.0 gm/dL Normal No Sep 23 [Mass/vol informati 2017 ume] in on in 10:50 PM Serum or source Plasma data Alkaline 46 - 116 U/L Normal No Sep 23 phosphata informati 2017 se on in 10:50 PM [Enzymati source c data activity/ volume] in Serum or Plasma Bilirubin 0.2 - 1.0 mg/dL Normal No Sep 23 .total informati 2017 [Mass/vol on in 10:50 PM ume] in source Serum or data Plasma Urea 7 - 18 mg/dL High No Sep 23 nitrogen informati 2017 [Mass/vol on in 10:50 PM ume] in source Serum or data Plasma Calcium 8.5 - mg/dL Normal No Sep 23 [Mass/vol 10.1 informati 2017 ume] in on in 10:50 PM Serum or source Plasma data Chloride 98 - 107 mmoL/L Normal No Sep 23 [Moles/vo informati 2017 lume] in on in 10:50 PM Serum or source Plasma data Carbon 21.0 - mmoL/L Normal No Sep 23 dioxide, 32.0 informati 2017 total on in 10:50 PM [Moles/vo source lume] in data Serum or Plasma Creatinin 0.55 - mg/dL Normal No Sep 23 e 1.02 informati 2017 [Mass/vol on in 10:50 PM ume] in source Serum or data Plasma Creatinin 50 - 200 ML/MIN Normal No Sep 23 e renal inform 2017 clearance on in 10:50 PM source predicted data by Cockcroft -Gault formula Estimated 59- ML/MIN No REFERENCE Sep 23 informati RANGE: 2017 glomerula on in >60 10:50 PM r source ML/MIN/1. filtratio data 73 SQUARE n rate METERSIf (GF this patient is -A merican, then multiply theresult by 1.210. Globulin 1.3 - 3.2 gm/dL High No Sep 23 [Mass/vol informati 2016 ume] in on in 10:50 PM Serum source data Glucose 74 - 106 mg/dL High No Sep 23 [Mass/vol informati 2016 ume] in on in 10:50 PM Serum or source Plasma data Potassium 3.5 - 5.1 mmoL/L Low No Sep 23 2016 [Moles/vo on in 10:50 PM lume] in source Serum or data Plasma Sodium 136 - 145 mmoL/L Normal No Sep 23 [Moles/vo informati 2016 lume] in on in 10:50 PM Serum or source Plasma data Aspartate 15 - 37 U/L Low No Sep 23 inform2016 aminotran on in 10:50 PM sferase source [Enzymati data c activity/ volume] in Serum or Plasma Alanine 12 - 78 U/L Normal No Sep 23 aminotran 2016 sferase on in 10:50 PM [Enzymati source c data activity/ volume] in Serum or Plasma Protein 6.4 - 8.2 gm/dL Normal No Sep 23 [Mass/vol informati 2016 ume] in on in 10:50 PM Serum or source Plasma data Lipase [Enzymatic activity/volume] in Serum or Plasma Observa Value Referen Units Interpr Notes Date tion ce etation Range Lipase 73 - 393 U/L Normal No Sep 23 [Enzymati informati 2017 c on in 10:50 PM activity/ source volume] data in Serum or Plasma CBC W Auto Differential panel in Blood Observa Value Referen Units Interpr Notes Date tion ce etation Range Basophils 0 - 0.2 K/MM3 Normal No Sep 23 2016 [#/volume on in 10:50 PM ] in source Blood by data Automated count Basophils 0.1 - 2.0 % Normal No Sep 23 /100 inform2016 leukocyte on in 10:50 PM s in source Blood by data Automated count Eosinophi 0.0 - 0.4 K/mm3 Normal No Sep 23 ls inform2016 [#/volume on in 10:50 PM ] in source Blood by data Automated count Eosinophi 0.1 - % Normal No Sep 23 ls/100 12.0 inform2016 leukocyte on in 10:50 PM s in source Blood by data Automated count Granulocy 1.8 - 7.8 K/mm3 Normal No Sep 23 shyann inform2016 [#/volume on in 10:50 PM ] in source Blood by data Automated count Granulocy 37.0 - % Normal No Sep 23 shyann/100 80.0 inform2016 leukocyte on in 10:50 PM s in source Blood by data Automated count Hematocri 37.0 - % Normal No Sep 23 t [Volume 47.0 inform2016 on in 10:50 PM Fraction] source of Blood data Hemoglobi 12.2 - g/dL No No Sep 23 n 16.2 informati inform2016 [Mass/vol on in on in 10:50 PM ume] in source source Blood data data Lymphocyt 0.7 - 4.5 K/mm3 Normal No Sep 23 es inform2016 [#/volume on in 10:50 PM ] in source Unspecifi data ed specimen by Automated count Lymphocyt 10 - 50.0 % Normal No Sep 23 es inform2016 [#/volume on in 10:50 PM ] in source Unspecifi data ed specimen by Automated count Erythrocy 27 - 31.2 pg Low No Sep 23 te mean inform2016 corpuscul on in 10:50 PM ar source hemoglobi data n [Entitic mass] Erythrocy 31.8 - g/dl Normal No Sep 23 te mean 35.4 inform2016 corpuscul on in 10:50 PM ar source hemoglobi data n concentra tion [Mass/vol ume] by Automated count Erythrocy 82.2 - fl Low No Sep 23 te mean 97.8 inform2016 corpuscul on in 10:50 PM ar volume source [Entitic data volume] by Automated count Monocytes 0.1 - 1.0 K/mm3 Normal No Sep 23 inform2016 [#/volume on in 10:50 PM ] in source Blood by data Automated count Monocytes 1.7 - 9.3 % Normal No Sep 23 /100 inform2016 leukocyte on in 10:50 PM s in source Blood by data Automated count Platelet 7.4 - fl Normal No Mar 08 mean 10.4 informati 2016 volume on in 10:50 PM [Entitic source volume] data in Blood by Automated count Platelets 142 - 424 K/mm3 Normal No Mar 08 informati 2016 [#/volume on in 10:50 PM ] in source Blood data Erythrocy 4.2 - 5.4 M/mm3 Normal No Mar 08 shyann informati 2016 [#/volume on in 10:50 PM ] in source Amniotic data fluid Erythrocy 11.5 - % Normal No Mar 08 te 17.5 informati 2016 distribut on in 10:50 PM ion width source [Entitic data volume] by Automated count Leukocyte 4.8 - K/MM3 Normal No Mar 08 s 10.8 informati 2016 [#/volume on in 10:50 PM ] in source Blood data Cobalamin (Vitamin B12) [Mass/volume] in Serum Observa Value Referen Units Interpr Notes Date tion ce etation Range Cobalamin 211 - 946 pg/mL No Performed Dec 31 (Vitamin informati at: CB 2017 9:04 B12) on in - [facility] AM [Mass/vol source ume] in data [place] [address] Serum 0 [place], [place] [id number] Acls Nurse: Oracio Alonso PhD, Phone: [phone] Comprehensive metabolic 2000 panel in Serum or Plasma Observa Value Referen Units Interpr Notes Date tion ce etation Range Albumin/G 1.1 - 1.8 No Low No Dec 31 lobulin informati informati 2016 9:04 [Mass on in on in AM ratio] in source source Serum or data data Plasma Albumin 3.4 - 5.0 gm/dL Normal No Dec 31 [Mass/vol informati 2016 9:04 ume] in on in AM Serum or source Plasma data Alkaline 46 - 116 U/L Normal No Dec 31 phosphata informati 2016 9:04 se on in AM [Enzymati source c data activity/ volume] in Serum or Plasma Bilirubin 0.2 - 1.0 mg/dL Normal No Dec 31 .total informati 2016 9:04 [Mass/vol on in AM ume] in source Serum or data Plasma Urea 7 - 18 mg/dL High No Dec 31 nitrogen informati 2016 9:04 [Mass/vol on in AM ume] in source Serum or data Plasma Calcium 8.5 - mg/dL Low No Dec 31 [Mass/vol 10.1 informati 2016 9:04 ume] in on in AM Serum or source Plasma data Chloride 98 - 107 mmoL/L High No Dec 31 [Moles/vo informati 2016 9:04 lume] in on in AM Serum or source Plasma data Carbon 21.0 - mmoL/L Normal No Dec 31 dioxide, 32.0 informati 2016 9:04 total on in AM [Moles/vo source lume] in data Serum or Plasma Creatinin 0.55 - mg/dL Low No Dec 31 e 1.02 informati 2016 9:04 [Mass/vol on in AM ume] in source Serum or data Plasma Estimated 59- ML/MIN No REFERENCE Dec 31 informati RANGE: 2017 9:04 glomerula on in >60 AM r source ML/MIN/1. filtratio data 73 SQUARE n rate METERSIf (GF this patient is -A merican, then multiply theresult by 1.210. Globulin 1.3 - 3.2 gm/dL High No Dec 31 [Mass/vol informati 2016 9:04 ume] in on in AM Serum source data Glucose 74 - 106 mg/dL Normal No Dec 31 [Mass/vol informati 2016 9:04 ume] in on in AM Serum or source Plasma data Potassium 3.5 - 5.1 mmoL/L Normal No Dec 31 informati 2016 9:04 [Moles/vo on in AM lume] in source Serum or data Plasma Sodium 136 - 145 mmoL/L Normal No Dec 31 [Moles/vo informati 2016 9:04 lume] in on in AM Serum or source Plasma data Aspartate 15 - 37 U/L Normal No Dec 31 informati 2016 9:04 aminotran on in AM sferase source [Enzymati data c activity/ volume] in Serum or Plasma Alanine 12 - 78 U/L Normal No Dec 31 aminotran informati 2016 9:04 sferase on in AM [Enzymati source c data activity/ volume] in Serum or Plasma Protein 6.4 - 8.2 gm/dL Normal No Dec 31 [Mass/vol informati 2016 9:04 ume] in on in AM Serum or source Plasma data Lipid 1996 panel in Serum or Plasma Observa Value Referen Units Interpr Notes Date tion ce etation Range Cholester < 200 mg/dL No No Dec 31 ol informati informati 2016 9:04 [Moles/vo on in on in AM lume] in source source Unspecifi data data ed specimen Cholester 40 - 60 MG/DL Normal No Dec 31 ol in HDL informati 2016 9:04 on in AM [Mass/vol source ume] in data Serum or Plasma Cholester 0 - 130 mg/dL Normal No Dec 31 ol in LDL informati 2016 9:04 on in AM [Mass/vol source ume] in data Serum or Plasma by calculati on Triglycer 30 - 200 mg/dL Normal No Dec 31 elly informati 2016 9:04 [Moles/vo on in AM lume] in source Serum or data Plasma Cholester 0 - 40 No Normal No Dec 31 ol in informati informati 2016 9:04 VLDL on in on in AM [Mass/vol source source ume] in data data Serum or Plasma Thyrotropin [Units/volume] in Serum or Plasma Observa Value Referen Units Interpr Notes Date tion ce etation Range Thyrotrop 0.358 - uIU/ml Low No Dec 31 in 3.740 informati 2016 9:04 [Units/vo on in AM lume] in source Serum or data Plasma CBC W Auto Differential panel in Blood Observa Value Referen Units Interpr Notes Date tion ce etation Range Basophils 0 - 0.2 K/MM3 Normal No Dec 31 informati 2016 9:04 [#/volume on in AM ] in source Blood by data Automated count Basophils 0.1 - 2.0 % Normal No Dec 31 informati 2016 9:04 leukocyte on in AM s in source Blood by data Automated count Eosinophi 0.0 - 0.4 K/mm3 Normal No Dec 31 ls informati 2016 9:04 [#/volume on in AM ] in source Blood by data Automated count Eosinophi 0.1 - % Normal No Dec 31 ls/100 12.0 informati 2016 9:04 leukocyte on in AM s in source Blood by data Automated count Granulocy 1.8 - 7.8 K/mm3 Normal No Dec 31 shyann informati 2016 9:04 [#/volume on in AM ] in source Blood by data Automated count Granulocy 37.0 - % Normal No Dec 31 shyann/100 80.0 informati 2016 9:04 leukocyte on in AM s in source Blood by data Automated count Hematocri 37.0 - % Normal No Dec 31 t [Volume 47.0 informati 2017 9:04 on in AM Fraction] source of Blood data Hemoglobi 12.2 - g/dL Normal No Dec 31 n 16.2 informati 2017 9:04 [Mass/vol on in AM ume] in source Blood data Lymphocyt 0.7 - 4.5 K/mm3 Normal No Dec 31 es informati 2017 9:04 [#/volume on in AM ] in source Unspecifi data ed specimen by Automated count Lymphocyt 10 - 50.0 % Normal No Dec 31 es informati 2017 9:04 [#/volume on in AM ] in source Unspecifi data ed specimen by Automated count Erythrocy 27 - 31.2 pg Low No Dec 31 te mean informati 2017 9:04 corpuscul on in AM ar source hemoglobi data n [Entitic mass] Erythrocy 31.8 - g/dl Normal No Dec 31 te mean 35.4 informati 2016 9:04 corpuscul on in AM ar source hemoglobi data n concentra tion [Mass/vol ume] by Automated count Erythrocy 82.2 - fl Low No Dec 31 te mean 97.8 informati 2017 9:04 corpuscul on in AM ar volume source [Entitic data volume] by Automated count Monocytes 0.1 - 1.0 K/mm3 Normal No Dec 31 informati 2017 9:04 [#/volume on in AM ] in source Blood by data Automated count Monocytes 1.7 - 9.3 % Normal No Dec 31 /100 informati 2017 9:04 leukocyte on in AM s in source Blood by data Automated count Platelet 7.4 - fl Normal No Dec 31 mean 10.4 informati 2017 9:04 volume on in AM [Entitic source volume] data in Blood by Automated count Platelets 142 - 424 K/mm3 Normal No Dec 31 informati 2017 9:04 [#/volume on in AM ] in source Blood data Erythrocy 4.2 - 5.4 M/mm3 Normal No Dec 31 shyann informati 2017 9:04 [#/volume on in AM ] in source Amniotic data fluid Erythrocy 11.5 - % Normal No Dec 31 te 17.5 informati 2017 9:04 distribut on in AM ion width source [Entitic data volume] by Automated count Leukocyte 4.8 - K/MM3 Low No Dec 31 s 10.8 informati 2016 9:04 [#/volume on in AM ] in source Blood data Urinalysis dipstick W Reflex Microscopic panel in Urine Observa Value Referen Units Interpr Notes Date tion ce etation Range Appeara SL CLEAR No No No November 04 nce of CLOUDY informa informa informa 2016 Urine tion in tion in tion in 10:40 source source source AM data data data Bacteri 4+ O No No No November 04 a informa informa informa 2016 [Presen tion in tion in tion in 10:40 ce] in source source source AM Urine data data data sedimen t by Light microsc opy Bilirub NEGATIV NEG No No No November 04 in E informa informa informa 2016 [Presen tion in tion in tion in 10:40 ce] in source source source AM Urine data data data by Test strip Erythro NEGATIV NEG No No No November 04 cytes E informa informa informa 2016 [Presen tion in tion in tion in 10:40 ce] in source source source AM Urine data data data Color YELLOW YELLOW No No No November 04 of informa informa informa 2016 Urine tion in tion in tion in 10:40 source source source AM data data data Glucose NEG No No No November 04 [Mass/vol informati informati informati 2016 ume] in on in on in on in 10:40 AM Urine by source source source Test data data data strip Ketones NEGATIV NEG mg/dL No No November 04 E informa informa 2016 [Presen tion in tion in 10:40 ce] in source source AM Urine data data by Automat ed test strip Mucus NEGATIV NEG No No No November 04 [Presen E informa informa informa 2016 ce] in tion in tion in tion in 10:40 Urine source source source AM sedimen data data data t by Light microsc opy Nitrite POSITIV NEG No Abnorma No November 04 E informa l informa 2016 [Presen tion in tion in 10:40 ce] in source source AM Urine data data by Test strip pH of 5.0 - 8.5 No Normal No November 04 Urine informati informati 2016 on in on in 10:40 AM source source data data Protein NEG mg/dL No No November 04 [Mass/vol informati informati 2017 ume] in on in on in 10:40 AM Urine by source source Automated data data test strip Specific 1.005 - No Normal No November 04 gravity 1.030 informati informati 2016 of Urine on in on in 10:40 AM source source data data Epithel 3-5 0 - 5 #/hpf No No November 04 ial informa informa 2017 cells.s tion in tion in 10:40 quamous source source AM data data [Presen ce] in Urine sedimen t by Microsc opy high power field Urobili 0.2 NEG E.U./dL No No November 04 nogen informa informa 2016 [Presen tion in tion in 10:40 ce] in source source AM Urine data data by Test strip Leukocy [3 O wbc/hpf No No November 04 shyann wbc/hpf informa informa 2016 [#/volu ; 5 tion in tion in 10:40 me] in wbc/hpf source source AM Urine ] data data Urinalysis dipstick W Reflex Microscopic panel in Urine Observa Value Referen Units Interpr Notes Date tion ce etation Range Appeara SL CLEAR No No No November 04 nce of CLOUDY informa informa informa 2017 Urine tion in tion in tion in 10:40 source source source AM data data data Bilirub NEGATIV NEG No No No November 04 in E informa informa informa 2016 [Presen tion in tion in tion in 10:40 ce] in source source source AM Urine data data data by Test strip Erythro NEGATIV NEG No No No November 04 cytes E informa informa informa 2016 [Presen tion in tion in tion in 10:40 ce] in source source source AM Urine data data data Color YELLOW YELLOW No No No November 04 of informa informa informa 2017 Urine tion in tion in tion in 10:40 source source source AM data data data Glucose NEG No No No November 04 [Mass/vol informati informati informati 2017 ume] in on in on in on in 10:40 AM Urine by source source source Test data data data strip Ketones NEGATIV NEG mg/dL No No November 04 E informa informa 2016 [Presen tion in tion in 10:40 ce] in source source AM Urine data data by Automat ed test strip Mucus NEGATIV NEG No No No November 04 [Presen E informa informa informa 2016 ce] in tion in tion in tion in 10:40 Urine source source source AM sedimen data data data t by Light microsc opy Nitrite POSITIV NEG No Abnorma No November 04 E informa l informa 2016 [Presen tion in tion in 10:40 ce] in source source AM Urine data data by Test strip pH of 5.0 - 8.5 No Normal No November 04 Urine informati informati 2017 on in on in 10:40 AM source source data data Protein NEG mg/dL No No November 04 [Mass/vol informati informati 2016 ume] in on in on in 10:40 AM Urine by source source Automated data data test strip Specific 1.005 - No Normal No November 04 gravity 1.030 informati informati 2016 of Urine on in on in 10:40 AM source source data data Urobili 0.2 NEG E.U./dL No No November 04 nogen informa informa 2016 [Presen tion in tion in 10:40 ce] in source source AM Urine data data by Test strip Hemoglobin.gastrointestinal [Presence] in Stool Observa Value Referen Units Interpr Notes Date tion ce etation Range Hemoglo NEGATIV NEG No No No November 04 bin.gas E informa informa informa 2016 trointe tion in tion in tion in 10:40 stinal source source source AM [Presen data data data ce] in Stool --1st specime n Amylase [Enzymatic activity/volume] in Serum or Plasma Observa Value Referen Units Interpr Notes Date tion ce etation Range Amylase 25 - 115 U/L Normal No November 04 [Enzymati informati 2016 9:45 c on in AM activity/ source volume] data in Serum or Plasma Comprehensive metabolic 2000 panel in Serum or Plasma Observa Value Referen Units Interpr Notes Date tion ce etation Range Albumin/G 1.1 - 1.8 No Low No November 04 lobulin informati informati 2016 9:45 [Mass on in on in AM ratio] in source source Serum or data data Plasma Albumin 3.4 - 5.0 gm/dL Normal No November 04 [Mass/vol informati 2017 9:45 ume] in on in AM Serum or source Plasma data Alkaline 46 - 116 U/L Normal No November 04 phosphata informati 2016 9:45 se on in AM [Enzymati source c data activity/ volume] in Serum or Plasma Bilirubin 0.2 - 1.0 mg/dL Normal No November 04 .total informati 2016 9:45 [Mass/vol on in AM ume] in source Serum or data Plasma Urea 7 - 18 mg/dL High No November 04 nitrogen informati 2016 9:45 [Mass/vol on in AM ume] in source Serum or data Plasma Calcium 8.5 - mg/dL Normal No November 04 [Mass/vol 10.1 informati 2016 9:45 ume] in on in AM Serum or source Plasma data Chloride 98 - 107 mmoL/L High No November 04 [Moles/vo informati 2016 9:45 lume] in on in AM Serum or source Plasma data Carbon 21.0 - mmoL/L Normal No November 04 dioxide, 32.0 informati 2016 9:45 total on in AM [Moles/vo source lume] in data Serum or Plasma Creatinin 0.55 - mg/dL Normal No November 04 e 1.02 informati 2016 9:45 [Mass/vol on in AM ume] in source Serum or data Plasma Creatinin 50 - 200 ML/MIN Normal No November 04 e renal informati 2016 9:45 clearance on in AM source predicted data by Cockcroft -Gault formula Estimated 59- ML/MIN No REFERENCE November 04 informati RANGE: 2017 9:45 glomerula on in >60 AM r source ML/MIN/1. filtratio data 73 SQUARE n rate METERSIf (GF this patient is -A merican, then multiply theresult by 1.210. Globulin 1.3 - 3.2 gm/dL High No November 04 [Mass/vol informati 2016 9:45 ume] in on in AM Serum source data Glucose 74 - 106 mg/dL Normal No November 04 [Mass/vol informati 2016 9:45 ume] in on in AM Serum or source Plasma data Potassium 3.5 - 5.1 mmoL/L Normal No November 04 informati 2016 9:45 [Moles/vo on in AM lume] in source Serum or data Plasma Sodium 136 - 145 mmoL/L Normal No November 04 [Moles/vo informati 2016 9:45 lume] in on in AM Serum or source Plasma data Aspartate 15 - 37 U/L Low No November 04 inform2016 9:45 aminotran on in AM sferase source [Enzymati data c activity/ volume] in Serum or Plasma Alanine 12 - 78 U/L Normal No November 04 aminotran inform2016 9:45 sferase on in AM [Enzymati source c data activity/ volume] in Serum or Plasma Protein 6.4 - 8.2 gm/dL Normal No November 04 [Mass/vol informati 2016 9:45 ume] in on in AM Serum or source Plasma data Lipase [Enzymatic activity/volume] in Serum or Plasma Observa Value Referen Units Interpr Notes Date tion ce etation Range Lipase 73 - 393 U/L Normal No November 04 [Enzymati informati 2016 9:45 c on in AM activity/ source volume] data in Serum or Plasma CBC W Auto Differential panel in Blood Observa Value Referen Units Interpr Notes Date tion ce etation Range Basophils 0 - 0.2 K/MM3 Normal No November 04 inform2016 9:45 [#/volume on in AM ] in source Blood by data Automated count Basophils 0.1 - 2.0 % Normal No November 04 informati 2016 9:45 leukocyte on in AM s in source Blood by data Automated count Eosinophi 0.0 - 0.4 K/mm3 Normal No November 04 ls informati 2016 9:45 [#/volume on in AM ] in source Blood by data Automated count Eosinophi 0.1 - % Normal No November 04 ls/100 12.0 informati 2016 9:45 leukocyte on in AM s in source Blood by data Automated count Granulocy 1.8 - 7.8 K/mm3 Normal No November 04 shyann informati 2016 9:45 [#/volume on in AM ] in source Blood by data Automated count Granulocy 37.0 - % Normal No November 04 shyann/100 80.0 informati 2016 9:45 leukocyte on in AM s in source Blood by data Automated count Hematocri 37.0 - % Normal No November 04 t [Volume 47.0 informati 2016 9:45 on in AM Fraction] source of Blood data Hemoglobi 12.2 - g/dL Normal No November 04 n 16.2 informati 2016 9:45 [Mass/vol on in AM ume] in source Blood data Lymphocyt 0.7 - 4.5 K/mm3 Normal No November 04 es informati 2017 9:45 [#/volume on in AM ] in source Unspecifi data ed specimen by Automated count Lymphocyt 10 - 50.0 % Normal No November 04 es informati 2016 9:45 [#/volume on in AM ] in source Unspecifi data ed specimen by Automated count Erythrocy 27 - 31.2 pg Low No November 04 te mean informati 2016 9:45 corpuscul on in AM ar source hemoglobi data n [Entitic mass] Erythrocy 31.8 - g/dl Low No November 04 te mean 35.4 informati 2016 9:45 corpuscul on in AM ar source hemoglobi data n concentra tion [Mass/vol ume] by Automated count Erythrocy 82.2 - fl Normal No November 04 te mean 97.8 informati 2016 9:45 corpuscul on in AM ar volume source [Entitic data volume] by Automated count Monocytes 0.1 - 1.0 K/mm3 Normal No November 04 informati 2017 9:45 [#/volume on in AM ] in source Blood by data Automated count Monocytes 1.7 - 9.3 % Normal No November 04 /100 informati 2017 9:45 leukocyte on in AM s in source Blood by data Automated count Platelet 7.4 - fl Low No November 04 mean 10.4 informati 2017 9:45 volume on in AM [Entitic source volume] data in Blood by Automated count Platelets 142 - 424 K/mm3 Normal No November 04 informati 2016 9:45 [#/volume on in AM ] in source Blood data Erythrocy 4.2 - 5.4 M/mm3 Normal No November 04 shyann informati 2017 9:45 [#/volume on in AM ] in source Amniotic data fluid Erythrocy 11.5 - % Normal No November 04 te 17.5 informati 2016 9:45 distribut on in AM ion width source [Entitic data volume] by Automated count Leukocyte 4.8 - K/MM3 Normal No November 04 s 10.8 informati 2016 9:45 [#/volume on in AM ] in source Blood data
--- OUTSIDE RECORDS SUMMARY | 2017-03-29 03:59 | External Medical Summary Rpt ---
Author Author INCOLÁS Amaro, [employer]S [employer] Organization [employer] Address Unknown Phone Unavailable [...] [facility] AM [Mass/vol source ume] in data [place] [address] Serum 0 [place], [place] [id number] Program Engagement Director: Oracio Alonso PhD, Phone: [phone] Comprehensive metabolic 2000 panel in Serum [...]
--- OUTSIDE RECORDS SUMMARY | 2017-03-29 03:59 | External Medical Summary Rpt | CCD ---
Author Author , NICOLÁS MONZON Address Unknown Phone [email or web address] Immunization Name Date Rout CVX Reac Dose Comm Prov Is Faci e tion ent ider Refu lity Give sed n Infl 09-2 Intr 0.5 Hist PD20 No PD20 uenz 5-20 amus mL oric 255 255 a 17 cula al Quad r Info rmat W/Pr ion es - Sour ce Unsp ecif ied
== END 2017-03-24 23:55 | disposition home or self-care (01) ==
LOC: ER 22:20
DX: M54.16 Radiculopathy, lumbar region (principal); Z88.2 Allergy status to sulfonamides; E03.9 Hypothyroidism, unspecified; G80.9 Cerebral palsy, unspecified

== ENCOUNTER → 2017-03-28 | Day surgery (SDC) | payer MEDICAID ==
[~2017-03-28] VITALS: Ht 170.2 cm; Wt 69.4 kg
[2017-03-28 09:20] VITALS: BP 138/82
[2017-03-28 09:34] VITALS: BP 138/82
[2017-03-28 09:36] VITALS: BP 140/90
--- NOTE | 2017-03-28 09:38 | Procedure Note ---
Procedure detail Date of procedure: 03/28/17 Anesthesiologist: Darrin Bass M.D. Complications: None Pre-procedure diagnosis: Sacroiliitis Post-procedure diagnosis: Same Indications for procedure: This patient is a pleasant 57-year-old white female who we have been treating for chronic low back pain with degenerative disc disease of lumbar spine and previous compression fracture. We did do a kyphoplasty and she has done very well with this. She has noted some increasing pain over her SI joints. She is tender over both SI joints. She does have positive Vita's test bilaterally. We' re approved do a RIGHT SI joint injection today. We will do a RIGHT SI joint injection under fluoroscopy today to see if this will help her. Procedure detail: Procedure: Right sacroliliac joint injection under fluoroscopy Informed consent was obtained and the risk and benefits of the procedure were explained to the patient.~ The patient was taken to the procedure room and noninvasive monitors were placed including noninvasive blood pressure cuff and pulse oximeter.~ The patient was placed prone on the procedure table.~ The~ right hip was cleansed using Betadine as a cleansing solution.~ C-arm fluorosocpy was used to view the right SI joint.~ The skin and subcutaneous tissues were anesthetized using Lidocaine 1.5% and a 25-gauge needle.~ After this, a 22-gauge spinal needle was inserted under fluoroscopic guidance into the inferior aspect of the right SI joint.~ Omnipaque dye was injected and a good spread was seen throughout the joint.~ After this, approximately 5 mL of bupivacaine 0.25% and Depo-Medrol 40 mg was incrementally injected into the sacroiliac joint.~ The patient tolerated the procedure well with no complications.~ The patient was observed in the Pain Clinic, then discharged home neurologically intact.~ Plan and disposition: We will follow-up with her in 2 weeks. We may seek approval for LEFT SI joint injection if she continues to have pain. at [id number]
[2017-03-28 09:52] VITALS: BP 145/86
== END ==
LOC: PM 09:12
PROC: 3E0U33Z Introduction of Anti-inflammatory into Joints, Percutaneous Approach (ICD-10-PCS; principal; 2017-03-28)
PROC: 3E0U3BZ Introduction of Anesthetic Agent into Joints, Percutaneous Approach (ICD-10-PCS; 2017-03-28)
DX: M46.1 Sacroiliitis, not elsewhere classified (principal)
CPT/HCPCS: G0260; J1030; Q9966

== ENCOUNTER → 2017-04-03 | Outpatient (CLI) | payer MEDICAID ==
--- NOTE | 2017-04-09 08:24 | RADIOLOGY REPORT PS360 ---
DIG MAMM-SCREEN MIESHA W/CAD CAD Screening COMPARISON: Digital mammograms 03/24/2013 and 04/02/2016 INDICATION: There is a history of breast cancer patient maternal grandmother. TECHNIQUE: Standard CC and MLO images were obtained. R2 CAD reviewed. FINDINGS: Moderate diffuse fiber glandular densities are seen in the central portions of both breast and the findings are bilateral and symmetrical. There is slight inversion of both nipples but this has been seen previously. There are few benign-appearing calcination in each breast and there is arterial calcification left breast. There is no suspicious lesion and there are no suspicious microcalcifications. IMPRESSION: Stable exam no suspicious lesion seen recommend yearly follow-up BI-RADS CATEGORY: 2_Benign RECOMMENDED FOLLOWUP: 12M 12 MONTH FOLLOW-UP (A letter has been sent to the patient regarding results of the study.)
== END ==
LOC: RAD 15:46
DX: Z12.31 Encounter for screening mammogram for malignant neoplasm of breast (principal)
CPT/HCPCS: G0202

== ENCOUNTER → 2017-05-13 | Day surgery (SDC) | payer MEDICAID ==
--- NOTE | 2017-05-13 14:50 | Pain Management SOAP Note ---
SOAP Note Pain Clinic Subjective: Patient presents to procedure area today for lumbar epidural steroid injection at the L4-5 level. However, patient is having some intense abdominal symptoms as well as RIGHT flank pain which the patient feels could be a UTI. She's not feeling well overall. We will send her to see her PCP. She'll reschedule her injection at a later date. at 1450
[2017-05-13 15:47] LABS: URINE BILIRUBIN - DIPSTICK NEGATIVE (NEG); URINE BLOOD NEGATIVE (NEG)
[2017-05-13 16:01] LABS: URINE SQUAMOUS CELLS 20-50 #/hpf (0-5)
== END ==
LOC: COP 14:07 → PM 14:07
PROVIDERS: Nurse Anesthetist, Certified Registered
DX: Z53.21 Procedure and treatment not carried out due to patient leaving prior to being seen by health care provider (principal)

== ENCOUNTER → 2017-05-30 | Outpatient (CLI) | payer MEDICAID ==
[~2017-05-30] MED LIST changes: +ZOFRAN ODT4 MG PO
--- NOTE | 2017-05-30 14:25 | RADIOLOGY REPORT PS360 ---
CHEST(2 VIEWS-NOT PORTABLE) HISTORY: COUGH ORDERING PHYSICIAN: Paresh Romero MD PATIENT AGE: 57 years COMPARISON: 08/29/2016 FINDINGS: The cardiomediastinal silhouette and pulmonary vascularity are within normal limits. The lungs are clear without infiltrates, suspicious nodules, or pleural effusions. There has been an interval vertebroplasty at T12. IMPRESSION: Interval vertebroplasty at T12 otherwise negative with no acute finding
== END ==
LOC: RAD 11:43
DX: R05 Cough (principal)